=== PATIENT | female | born 1930 | race Caucasian/White ===

== ENCOUNTER 2016-04-04 19:07 | Inpatient (IN) | payer MEDICARE, BC ==
[2016-04-04] MEDS ORDERED: SODIUM CHLORIDE 0.9% 10 ML FLUSH FLUSH PRN (19:19)
[2016-04-04] MEDS ORDERED: NS 1,000 ML IV ONE (19:19)
[2016-04-04 19:42] LABS: ALLEN'S TEST PASS; BEb -7.4 (+/- 2); TCO2 19.2 MMOL/L (23-27)
[2016-04-04 19:43] LABS: ABG Draw Site Right Radial; ABG Draw Tech BKL
--- NOTE | 2016-04-04 19:45 | DIRPT ---
CLINICAL DATA: Chest pain, found unresponsive after falling while walking out of a bathroom. CPR performed. Hyperglycemia. Altered mental status. EXAM: PORTABLE CHEST 1 VIEW COMPARISON: 12/12/2014 FINDINGS: New moderate enlargement of the cardiopericardial silhouette with bilateral perihilar interstitial accentuation and slight prominence of the reji. Atherosclerotic aortic arch. Left axillary clips noted. Calcifications noted below the left glenohumeral joint. IMPRESSION: 1. New moderate enlargement of the cardiopericardial silhouette with perihilar interstitial accentuation favoring interstitial edema. 2. Low lung volumes. 3. No pneumothorax identified. Electronically Signed By: Shawn Foster M.D. On: 04/04/2016 19:42
--- NOTE | 2016-04-04 20:11 | EDPRACDOC ---
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 NO SXS. PT HAS SIG PROBLEMS WITH VALVES. NOT A CANDIDATE FOR DIALYSIS. ON COUMADIN. Presyncopal phase: Reports: None Postsyncopal phase: Reports: Rapid recovery Prehospital care: Reports: IV, Moniter Improves/Worsens with: improves with: Nothing Associated Signs/Symptoms: Reports: None <Crow Washington - Last Filed: 04/04/16 22:13> <Patel Mueller - Last Filed: 04/05/16 00:00> - General Information Chief Complaint: Fall Stated Complaint: UNRESPONSIVE Time Seen by Provider: 04/04/16 19:09 Home Medications: Home Medications Cholecalciferol [Vitamin D3 (cholecalciferol)] 1,000 units PO DAILY 03/12/12 Nitroglycerin [Nitrostat] 0.4 mg SL [id number] PRN 03/12/12 Aspirin (Enteric Coated) [Halfprin] 81 mg PO DAILY 01/31/14 Febuxostat [Uloric] 40 mg PO QAM 01/31/14 Insulin Glargine [Lantus Pen] 22 units SQ HS 01/31/14 Linagliptin [Tradjenta] 5 mg PO DAILY 01/31/14 Rosuvastatin Calcium [Crestor] 5 mg PO HS 01/31/14 Carvedilol [Coreg] 25 mg PO BID #60 tab 02/04/14 B Complex with Vitamin C [Super B Complex with C] 1 cap PO DAILY 12/09/14 Isosorbide Mononitrate [Imdur] 60 mg PO DAILY #30 tab 12/12/14 Amiodarone [Cordarone, Pacerone] 200 mg PO DAILY 04/04/16 Calcium Carbonate [Tums] 1 tab PO TID PRN 04/04/16 Folic Acid/Vitamin B Comp W-C [Renavit Tablet] 1 tab PO DAILY 04/04/16 HydrALAZINE (Cardiovascular) [Apresoline] 25 mg PO QID 04/04/16 Metolazone [Zaroxolyn] 2.5 mg PO TU 04/04/16 Sertraline HCl [Zoloft] 25 mg PO DAILY 04/04/16 Torsemide 20 mg PO DAILY 04/04/16 Warfarin Sodium [Coumadin] 1 mg PO Q72H 04/04/16 Warfarin Sodium [Coumadin] 2 mg PO Q72H 04/04/16 Warfarin Sodium [Coumadin] 2 mg PO Q72H 04/04/16 Allergies/Adverse Reactions: Allergies Allergy/AdvReac Type Severity Reaction Status Date / Time No Known Allergies Allergy Verified 12/09/14 10:44 - Treatment Prior to ED Arrival Reported Medications/Treatment HOUSING INSPECTORS Treated With Medication HOUSING INSPECTORS YES Medications HOUSING INSPECTORS (Medication/ 1mg of atropine via ems Dose/Time) EMS Treatment ALS IV Yes <Crow Washington - Last Filed: 04/04/16 22:13> - Treatment Prior to ED Arrival Reported Medications/Treatment HOUSING INSPECTORS Treated With Medication HOUSING INSPECTORS YES Medications HOUSING INSPECTORS (Medication/ 1mg of atropine via ems Dose/Time) EMS Treatment ALS IV Yes <Patel Mueller - Last Filed: 04/05/16 00:00> ED Past Medical History - History Reviewed Yes Nurses notes reviewed and agree except as marked - Patient Medical History Cardiac History: Reports: Atrial Fibrillation, Hypertension, Congestive Heart Failure (Diastolic dysfunction), Hypercholesterolemia, Syncope. Denies: Cardiac Catheterization, CABG Respiratory History: Denies: Pneumonia GI/ History: Reports: Renal Disease (Diabetic nephropathy), Renal Failure ( Chronic renal failure last creatinine on October 18, 2014 was 4.02 her hemogl). Denies: Kidney (Renal Surgery) Musculoskeletal History: Reports: Arthritis, Osteoarthritis Psychological History: Denies: Depression, Anxiety, Substance Use Disorder Systemic History: Reports: Cancer (breast, cervical), Anemia (2000 P HIP REPLACEMENT), Diabetes. Denies: Lupus Surgical History: Reports: Cholecystectomy, Hernia Surgery, Other (Rt hip surgery and mastectomy). Denies: CABG, Hysterectomy, Angioplasty, Cardiac Catheterization, Tonsillectomy/Adnoidectomy - Family Medical History Reports: Hypertension, Diabetes, Cancer, Stroke, Cardiac Disorders - Social Medical History Smoking Status: Never smoker Social History: Denies: Amphetamine Use, Substance Use Disorder <Crow Washington - Last Filed: 04/04/16 22:13> EDM Review of Systems - Review of Systems ROS Negative Except as Marked: Yes All systems reviewed and were negative except as marked <Crow Washington - Last Filed: 04/04/16 22:13> - Physical Exam Constitutional: Alert (Awake), No apparent distress Oriented to: Time, Person, Place Last recorded Vital Signs: Last Vital Signs Temp 97.2 F L 04/04/16 19:12 Pulse 60 04/04/16 19:27 Resp 21 04/04/16 19:27 BP 143/66 04/04/16 19:27 Pulse Ox 96 04/04/16 19:27 Oxygen Pulse Oxygen Saturation 96 O2 Device Room Air Oxygen Flow Rate Fraction of Inspired Oxygen ( FIO2) - HEENT Head: Normal ( normocephalic) Eye Exam: Normal (PERRL, EOMI, Sclera white) Oropharynx: Normal (Pharynx:Moist without exudate,Gums-no swelling) ENT EAC: Normal TMJ: Normal Nose: No Symptoms Reported (septum midline) Neck: Normal (FROM, trachea at midline) - Respiratory/Cardiovascular Respiratory: Normal - CTA (BBS clear to auscultation without adventitious sounds ) Cardiovascular: Normal (RRR without murmur, gallop or rub) - GI Auscultation: Normal (NABS) Palpation: Normal (Soft,No rebound or guarding, non distended) Tenderness: Non tender Euceda's Sign: Negative - Musculoskeletal Back: Normal (Non-Tender) Extremities: Normal (Normal tone, Pulses 2+ No cyanosis or edema, FROM) - Integumentary Skin: Normal, Warm, Dry Lymphatics: Normal (no adenopathy) - Neurologic Memory Impaired: Normal Motor Function: Normal (Normal tone, Pulses 2+ No cyanosis or edema, FROM) Cranial Nerve: Normal (CN II-X11 intact sensation, strength 5/5) Cerebellar: Normal Mood Description: Normal Perception: Normal <Crow Washington - Last Filed: 04/04/16 22:13> - Physical Exam Last recorded Vital Signs: Last Vital Signs Temp 97.7 F 04/04/16 23:20 Pulse 59 L 04/04/16 23:20 Resp 18 04/04/16 23:20 BP 167/68 04/04/16 23:20 Pulse Ox 94 04/04/16 23:20 Oxygen Pulse Oxygen Saturation 91 O2 Device Room Air Oxygen Flow Rate Fraction of Inspired Oxygen ( FIO2) <Patel Mueller - Last Filed: 04/05/16 00:00> - Results 04/04/16 21:20 04/04/16 21:20 Puncture Site Right radial 04/04/16 19:38 pH 7.310 pH UNITS (7.35-7.45) L 04/04/16 19:38 pCO2 36.0 mmHg (35-45) 04/04/16 19:38 pO2 87.0 mmHg (80-100) 04/04/16 19:38 HCO3 18.1 MMOL/L (22-26) L 04/04/16 19:38 Total CO2 19.2 MMOL/L (23-27) L 04/04/16 19:38 Base Excess -7.4 (+/- 2) L 04/04/16 19:38 FiO2 % Ra 04/04/16 19:38 Specimen Drawn By Bkl 04/04/16 19:38 Lab Results 04/04/16 19:38 Puncture Site Right radial pH 7.310 L pCO2 36.0 pO2 87.0 HCO3 18.1 L Total CO2 19.2 L Base Excess -7.4 L FiO2 % Ra Specimen Drawn By Bkl - EKG EKG #1 [place]: Normal Rhythm: NSR Block: 1, AVB Hypertrophy: None ST: Normal <Crow Washington - Last Filed: 04/04/16 22:13> - Results 04/04/16 21:20 04/04/16 21:20 WBC 8.8 xk/uL (3.8-10.8) 04/04/16 21:20 RBC 3.70 xM/uL (4.20-5.40) L 04/04/16 21:20 Hgb 11.2 g/dL (12.0-16.0) L 04/04/16 21:20 Hct 34.2 % (36-47) L 04/04/16 21:20 MCV 93 fL (81-99) 04/04/16 21:20 MCH 30.4 pg (27-32) 04/04/16 21:20 MCHC 32.9 g/dl (33-36) L 04/04/16 21:20 RDW 18.0 % (11.5-14.5) H 04/04/16 21:20 Plt Count 111 xk/uL (130-400) L 04/04/16 21:20 MPV 9.6 fL (7.4-10.4) 04/04/16 21:20 Neut % (Auto) Cancelled 04/04/16 21:20 Lymph % (Auto) Cancelled 04/04/16 21:20 [place] % (Auto) Cancelled 04/04/16 21:20 Eos % (Auto) Cancelled 04/04/16 21:20 Baso % (Auto) Cancelled 04/04/16 21:20 Absolute Neuts (auto) Cancelled 04/04/16 21:20 Absolute Lymphs (auto) Cancelled 04/04/16 21:20 Seg Neuts % (Manual) 88 % (45-76) H 04/04/16 21:20 Band Neutrophils % 0 % (0-5) 04/04/16 21:20 Lymphocytes % (Manual) 9 % (17-44) L 04/04/16 21:20 Monocytes % (Manual) 3 % (0-10) 04/04/16 21:20 Absolute Neutrophils 7.74 xk/uL (1.7-8.2) 04/04/16 21:20 Absolute Lymphocytes 0.79 xk/uL (0.65-4.75) 04/04/16 21:20 Platelet Estimate Dec (NORMAL) 04/04/16 21:20 RBC Morphology 1+ aniso 04/04/16 21:20 PT 23.6 SEC (9.2-11.2) H 04/04/16 21:00 INR 2.3 04/04/16 21:00 APTT 29.9 SEC (22-35) 04/04/16 21:00 Puncture Site Right radial 04/04/16 19:38 pH 7.310 pH UNITS (7.35-7.45) L 04/04/16 19:38 pCO2 36.0 mmHg (35-45) 04/04/16 19:38 pO2 87.0 mmHg (80-100) 04/04/16 19:38 HCO3 18.1 MMOL/L (22-26) L 04/04/16 19:38 Total CO2 19.2 MMOL/L (23-27) L 04/04/16 19:38 Base Excess -7.4 (+/- 2) L 04/04/16 19:38 FiO2 % Ra 04/04/16 19:38 Specimen Drawn By Bkl 04/04/16 19:38 Sodium 143 mEq/L (137-146) 04/04/16 21:20 Potassium 4.2 mEq/L (3.5-5.1) 04/04/16 21:20 Chloride 108 mEq/L (98-107) H 04/04/16 21:20 Carbon Dioxide 21 mMOL/L (22-33) L 04/04/16 21:20 Anion Gap 18 mEq/L (8-16) H 04/04/16 21:20 BUN 95 MG/DL (7-17) H 04/04/16 21:20 Creatinine 4.70 MG/DL (0.52-1.04) H 04/04/16 21:20 Estimated GFR (MDRD) 9 mL/min (>=60) L 04/04/16 21:20 Glucose 155 MG/DL (70-99) H 04/04/16 21:20 Calculated Osmolality 307 MOs/Kg (270-290) H 04/04/16 21:20 Calcium 8.4 MG/DL (8.4-10.2) 04/04/16 21:20 Corrected Calcium 8.8 MG/DL (8.4-10.2) 04/04/16 21:20 Total Bilirubin 0.5 MG/DL (0.2-1.3) 04/04/16 21:20 AST 51 IU/L (14-36) H 04/04/16 21:20 ALT 48 IU/L (9-52) 04/04/16 21:20 Alkaline Phosphatase 52 IU/L (55-165) L 04/04/16 21:20 Troponin I 0.05 ng/mL (<.04) 04/04/16 21:20 Total Protein 6.0 G/DL (6.3-8.2) L 04/04/16 21:20 Albumin 3.6 G/DL (3.5-5.0) 04/04/16 21:20 Urine Color Yellow 04/04/16 22:05 Urine Clarity Hazy 04/04/16 22:05 Urine pH 5.0 (5.0-8.0) 04/04/16 22:05 Ur Specific [place] 1.010 04/04/16 22:05 Urine Protein 1+ (NEG/TRACE) H 04/04/16 22:05 Urine Glucose (UA) Neg (NEGATIVE) 04/04/16 22:05 Urine Ketones Neg (NEGATIVE) 04/04/16 22:05 Urine Occult Blood 1+ (NEG/TRACE) H 04/04/16 22:05 Urine Nitrite Neg (NEGATIVE) 04/04/16 22:05 Urine Bilirubin Neg (NEGATIVE) 04/04/16 22:05 Urine Urobilinogen 0.2 MG/DL (0-1) 04/04/16 22:05 Ur Leukocyte Esterase Neg (NEGATIVE) 04/04/16 22:05 Urine RBC 2-5 (0-5) 04/04/16 22:05 Urine WBC 2-5 (0-5) 04/04/16 22:05 Ur Epithelial Cells Occ 04/04/16 22:05 Urine Bacteria Few (NEG/FEW) 04/04/16 22:05 Urine Mucus Occ (NEG/OCC) 04/04/16 22:05 Lab Results 04/04/16 04/04/16 04/04/16 22:05 21:20 21:20 WBC 8.8 RBC 3.70 L Hgb 11.2 L Hct 34.2 L MCV 93 MCH 30.4 MCHC 32.9 L RDW 18.0 H Plt Count 111 L MPV 9.6 Neut % (Auto) Cancelled Lymph % (Auto) Cancelled [place] % (Auto) Cancelled Eos % (Auto) Cancelled Baso % (Auto) Cancelled Absolute Neuts (auto) Cancelled Absolute Lymphs (auto) Cancelled Seg Neuts % (Manual) 88 H Band Neutrophils % 0 Lymphocytes % (Manual) 9 L Monocytes % (Manual) 3 Absolute Neutrophils 7.74 Absolute Lymphocytes 0.79 Platelet Estimate Dec RBC Morphology 1+ aniso PT INR APTT Puncture Site pH pCO2 pO2 HCO3 Total CO2 Base Excess FiO2 % Specimen Drawn By Sodium 143 Potassium 4.2 Chloride 108 H Carbon Dioxide 21 L Anion Gap 18 H BUN 95 H Creatinine 4.70 H Estimated GFR (MDRD) 9 L Glucose 155 H Calculated Osmolality 307 H Calcium 8.4 Corrected Calcium 8.8 Total Bilirubin 0.5 AST 51 H ALT 48 Alkaline Phosphatase 52 L Troponin I 0.05 Total Protein 6.0 L Albumin 3.6 Urine Color Yellow Urine Clarity Hazy Urine pH 5.0 Ur Specific [place]ena 1.010 Urine Protein 1+ H Urine Glucose (UA) Neg Urine Ketones Neg Urine Occult Blood 1+ H Urine Nitrite Neg Urine Bilirubin Neg Urine Urobilinogen 0.2 Ur Leukocyte Esterase Neg Urine RBC 2-5 Urine WBC 2-5 Ur Epithelial Cells Occ Urine Bacteria Few Urine Mucus Occ 04/04/16 04/04/16 21:00 19:38 WBC RBC Hgb Hct MCV MCH MCHC RDW Plt Count MPV Neut % (Auto) Lymph % (Auto) [place] % (Auto) Eos % (Auto) Baso % (Auto) Absolute Neuts (auto) Absolute Lymphs (auto) Seg Neuts % (Manual) Band Neutrophils % Lymphocytes % (Manual) Monocytes % (Manual) Absolute Neutrophils Absolute Lymphocytes Platelet Estimate RBC Morphology PT 23.6 H INR 2.3 APTT 29.9 Puncture Site Right radial pH 7.310 L pCO2 36.0 pO2 87.0 HCO3 18.1 L Total CO2 19.2 L Base Excess -7.4 L FiO2 % Ra Specimen Drawn By Bkl Sodium Potassium Chloride Carbon Dioxide Anion Gap BUN Creatinine Estimated GFR (MDRD) Glucose Calculated Osmolality Calcium Corrected Calcium Total Bilirubin AST ALT Alkaline Phosphatase Troponin I Total Protein Albumin Urine Color Urine Clarity Urine pH Ur Specific [place] Urine Protein Urine Glucose (UA) Urine Ketones Urine Occult Blood Urine Nitrite Urine Bilirubin Urine Urobilinogen Ur Leukocyte Esterase Urine RBC Urine WBC Ur Epithelial Cells Urine Bacteria Urine Mucus - Additional Information PATIENT REQUEST TO BE A DNI- DO NOT INTUBATE <Patel Mueller - Last Filed: 04/05/16 00:00> ED Critical Care Note - Critical Care Note Total Time (mins): 35 <Crow Washington - Last Filed: 04/04/16 22:13> - Departure Yes I personally saw and evaluated the patient. Disposition: Admit IP To This Hospital Decision to Admit Time: 22:06 (HYUN) Decision to admit date: 04/04/16 Decision to admit: from ED <Crow Washington - Last Filed: 04/04/16 22:13> <Patel Mueller - Last Filed: 04/05/16 00:00> - Departure Condition: Good Final Diagnosis: SYNCOPE, CRF, CHF
--- NOTE | 2016-04-04 21:08 | DIRPT ---
CLINICAL DATA: 86-year-old female with history of syncope and fall while coming out of the bathroom. History of left-sided breast cancer status post left mastectomy. EXAM: CT HEAD WITHOUT CONTRAST CT CERVICAL SPINE WITHOUT CONTRAST TECHNIQUE: Multidetector CT imaging of the head and cervical spine was performed following the standard protocol without intravenous contrast. Multiplanar CT image reconstructions of the cervical spine were also generated. COMPARISON: Head CT 03/12/2012. FINDINGS: CT HEAD FINDINGS Mild cerebral atrophy. Patchy and confluent areas of decreased attenuation are noted throughout the deep and periventricular white matter of the cerebral hemispheres bilaterally, compatible with chronic microvascular ischemic disease. No acute displaced skull fractures are identified. No acute intracranial abnormality. Specifically, no evidence of acute post-traumatic intracranial hemorrhage, no definite regions of acute/subacute cerebral ischemia, no focal mass, mass effect, hydrocephalus or abnormal intra or extra-axial fluid collections. The visualized paranasal sinuses and mastoids are well pneumatized, with exception of some minimal mucosal thickening in the maxillary sinuses bilaterally. CT CERVICAL SPINE FINDINGS No acute displaced fractures of the cervical spine. Alignment is anatomic. Prevertebral soft tissues are normal. Multilevel degenerative disc disease, most evident at C5-C6 and C6-C7. Multilevel facet arthropathy. Visualized portions of the upper thorax are remarkable for areas of ground-glass attenuation and septal thickening throughout the lung apices, suggesting pulmonary edema. IMPRESSION: 1. No evidence of significant acute traumatic injury to the skull, brain or cervical spine. 2. Mild cerebral atrophy with chronic microvascular ischemic changes in the cerebral white matter. 3. Multilevel degenerative disc disease and cervical spondylosis, as above. 4. The appearance of the lung apices suggests pulmonary edema, likely from congestive heart failure given the appearance on recent chest x-ray. Electronically Signed By: Yash Davila M.D. On: 04/04/2016 21:06
[2016-04-04 21:31] LABS: MPV 9.6 fL (7.4-10.4)
[2016-04-04 21:41] LABS: BLOOD UREA NITROGEN 95 MG/DL (7-17); CALC CORRECTED 8.8 MG/DL (8.4-10.2); CALCIUM 8.4 MG/DL (8.4-10.2); CALCULATED OSMOLALITY 307 MOs/Kg (270-290); CHLORIDE 108 mEq/L (98-107); GLUCOSE 155 MG/DL (70-99); SODIUM LEVEL 143 mEq/L (137-146)
[2016-04-04 21:44] LABS: PARTIAL THROMB. TIME 29.9 SEC (22-35); PT-INR 2.3
[2016-04-04 22:13] LABS: LEUKOCYTES/URINE NEG (NEGATIVE); NITRITE/URINE NEG (NEGATIVE); URINE OCCULT BLOOD 1+ (NEG/TRACE)
--- NOTE | 2016-04-04 22:25 | HISTPHYS ---
- Chief Complaint syncope - History of Present Illness PRIMARY CARE PROVIDER: Dr. Davidson JAVA ANALYST: Dr. Peter REFINERY OPERATOR: Dr. Bettencourt in [place] HPI: The patient is an 86 yo woman with multiple medical problems including chronic kidney disease stage 5, valvular heart disease, who presents with syncope. The patient had just gotten home from seeing Dr. Bettencourt, her principal scientist, when she said she felt wobbly. The patient does not remember all the events, so much of the history is obtained from the patient's daughter, who witnessed the events. She uses a cane at baseline, and she went toward the bathroom, when she passed out and lost consciousness. Family caught patient before she hit her head. She lost bladder control. She had some twitching of her arm (right) but no seizure-like shaking. No dragging of a leg. She was unconscious for at least 10 minutes. Family did not feel a pulse and per cut lace machine operator recommendations started chest compressions at home. EMS arrived and she was still unconscious. EMS said her blood pressure and heart rate were low. She awakened in the emergency department and said she could hear what people where saying to her but she could not respond. No slurred speech. Onset: today. Duration: intermittent. Location: generalized. Character: complete loss of consciousness. Alleviated by: Nothing. Exacerbated by: Nothing. Associated Symptoms: She felt "wobbly." Otherwise no symptoms. Treatments: none at home except usual medications. Is not a candidate for dialysis due to her heart. Is not a candidate for heart surgery due to her kidneys. - Medical History Cardiac History: Reports: Atrial Fibrillation, Hypertension, Congestive Heart Failure (Diastolic. ECHO 2013: EF 60%. Mod-severe MR. small PFO but neg bubble.) , Hypercholesterolemia, Valvular Heart Disease, Syncope (and valvular heart disease), Other GI/ History: Reports: Renal Disease (Diabetic nephropathy), Renal Failure ( Chronic renal failure. CKD stage 4-5. Cr usually 4.) Musculoskeletal History: Reports: Arthritis, Osteoarthritis Systemic History: Reports: Cancer (breast, cervical), Anemia, Diabetes (Type 2.) Is not a candidate for dialysis due to her heart. Is not a candidate for heart surgery due to her kidneys. ECHOCARDIOGRAM 02/01/2014: EF 60% Left ventricular size, wall thickness, and systolic function are normal. No segmental abnormality. Marked left atrial dilatation. Right ventricle is normal in size and function. SMALL PATENT FORAMEN OVALE SUGGESTED BY DOPPLER COLOR FLOW. Negative bubble study for potential right to left shunt. Mild aortic stenosis with peak/mean pressure gradient of 23/14 mmHg, the aortic valve area by continuity equation is 1.7 cm2. Severe, diffuse and nodular mitral annular calcification present. Moderate to severe 3+ mitral regurgitation. Mild tricuspid regurgitation. Right ventricular systolic pressure, as measured by Doppler, is 60 mmHg. Inferior vena cava with no significant inspiratory collapse, which is consistent with a right atrial pressure of > 20 mmHg. - Surgical History Reports: Cholecystectomy, Hernia Surgery (and hip replacement 1999), Other (Rt hip surgery yrs ago and Right mastectomy 15 yrs ago.) OTHER: Thyroid fine needle aspiration 05/31/14: Pathology: consistent with non-neoplastic goiter. - Medictions/Allergies Allergies No Known Allergies Allergy (Verified 12/09/14 10:44) Current Medication List: Reviewed Home Medications Cholecalciferol [Vitamin D3 (cholecalciferol)] 1,000 units PO DAILY 03/12/12 Nitroglycerin [Nitrostat] 0.4 mg SL [id number] PRN 03/12/12 Aspirin (Enteric Coated) [Halfprin] 81 mg PO DAILY 01/31/14 Febuxostat [Uloric] 40 mg PO QAM 01/31/14 Insulin Glargine [Lantus Pen] 22 units SQ HS 01/31/14 Linagliptin [Tradjenta] 5 mg PO DAILY 01/31/14 Rosuvastatin Calcium [Crestor] 5 mg PO HS 01/31/14 Carvedilol [Coreg] 25 mg PO BID #60 tab 02/04/14 B Complex with Vitamin C [Super B Complex with C] 1 cap PO DAILY 12/09/14 Isosorbide Mononitrate [Imdur] 60 mg PO DAILY #30 tab 12/12/14 Amiodarone [Cordarone, Pacerone] 200 mg PO DAILY 04/04/16 Calcium Carbonate [Tums] 1 tab PO TID PRN 04/04/16 Folic Acid/Vitamin B Comp W-C [Renavit Tablet] 1 tab PO DAILY 04/04/16 HydrALAZINE (Cardiovascular) [Apresoline] 25 mg PO QID 04/04/16 Metolazone [Zaroxolyn] 2.5 mg PO TU 04/04/16 Sertraline HCl [Zoloft] 25 mg PO DAILY 04/04/16 Torsemide 20 mg PO DAILY 04/04/16 Warfarin Sodium [Coumadin] 1 mg PO Q72H 04/04/16 Warfarin Sodium [Coumadin] 2 mg PO Q72H 04/04/16 Warfarin Sodium [Coumadin] 2 mg PO Q72H 04/04/16 - Family History Reports: Diabetes (Mother), Cardiac Disorders (Siblings: abnormal heart valves, and MIs.) - Social History Lives: With Family Smoking Status: Never smoker Social History: Denies: Alcohol Use, Substance Use Disorder - Review of Systems GENERAL: No Fever, chills, or diaphoresis. Positive for fatigue/malaise. HEENT: No ear pain or discharge. No nasal discharge or bleeding. No throat pain or swelling. No eye pain or eye redness. RESPIRATORY: No cough, wheezing, or shortness of breath. CARDIOVASCULAR: No chest pain or palpitations. GI: No abdominal pain, nausea, vomiting, diarrhea, constipation, or bloody stool. NEUROLOGICAL: No headache or focal weakness. Had unsteady gait. INTEGUMENT: no rashes, itching, or lesions. LYMPHATIC SYSTEM: no lymph node swelling or pain. MUSCULOSKELETAL: no pain or joint swelling. GENITOURINARY: No dysuria or hematuria. ENDOCRINE: No polyuria or polydipsia. HEME: No chronic anemia, bleeding, or easy bruising. - Physical Exam Vital Signs: Initial Vitals Temperature 97.2 F L 04/04/16 19:12 Pulse Rate 61 04/04/16 19:12 Respiratory Rate 22 04/04/16 19:12 Blood Pressure 161/67 04/04/16 19:12 Pulse Oxygen Saturation 97 04/04/16 19:12 Weight: 81.7 kg Height: 5'4" BMI: 30.9 - Other Exam Other Exam Findings: GENERAL: Ill-appearing, well nourished, no acute distress. HEENT: Normocephalic, atraumatic; pupils equal and round. Nares patent, without discharge or bleeding. No oropharyngeal lesions or erythema. Mucous membranes are dry. NECK: is supple, no masses, trachea midline. RESPIRATORY: Clear to auscultation bilaterally. Chest wall movements are symmetric. No use of accessory muscles to breathe. No wheezing, rhonchi. Minimal rales in upper lungs bilaterally. CARDIOVASCULAR: Normal S1, S2. Murmur 3/6 systolic. No rubs, or gallops. PMI non -displaced. Carotids: no carotid bruits. Mild bradycardia. DP pulses 2+ bilaterally. GI: soft, nontender, non-distended, normal active bowel sounds. No hepatosplenomegaly. INTEGUMENT: Clean, dry, and intact. No rashes. MUSCULOSKELETAL: Moving all extremities. No cyanosis. No clubbing. Edema: trace lower extremity edema bilaterally. NEUROLOGICAL: Cranial nerves 2-12 grossly intact. Motor 4/5 throughout. Reflexes : 2+ bilaterally. Babinski: toes downgoing bilaterally. Intact Finger to nose. Sensory grossly intact to light touch. Intact rapid alternating movements bilaterally. No pronator drift. PSYCHIATRIC: Fully oriented. Normal and appropriate affect. LYMPHATIC: No cervical lymphadenopathy. No supraclavicular lymphadenopathy. - Lab Results Laboratory Tests 04/04/16 04/04/16 04/04/16 19:38 21:00 21:20 WBC RBC Hgb Hct MCV MCH MCHC RDW Plt Count MPV Neut % (Auto) Lymph % (Auto) [place] % (Auto) Eos % (Auto) Baso % (Auto) Absolute Neuts (auto) Absolute Lymphs (auto) Seg Neuts % (Manual) Band Neutrophils % Lymphocytes % (Manual) Monocytes % (Manual) Absolute Neutrophils Absolute Lymphocytes Platelet Estimate RBC Morphology PT 23.6 H INR 2.3 APTT 29.9 Puncture Site Right radial pH 7.310 L pCO2 36.0 pO2 87.0 HCO3 18.1 L Total CO2 19.2 L Base Excess -7.4 L FiO2 % Ra Specimen Drawn By Bkl Sodium 143 Potassium 4.2 Chloride 108 H Carbon Dioxide 21 L Anion Gap 18 H BUN 95 H Creatinine 4.70 H Estimated GFR (MDRD) 9 L Glucose 155 H POC Capillary Glucose Hemoglobin A1c Calculated Osmolality 307 H Calcium 8.4 Corrected Calcium 8.8 Total Bilirubin 0.5 AST 51 H ALT 48 Alkaline Phosphatase 52 L Troponin I 0.05 Total Protein 6.0 L Albumin 3.6 TSH Urine Color Urine Clarity Urine pH Ur Specific [place] Urine Protein Urine Glucose (UA) Urine Ketones Urine Occult Blood Urine Nitrite Urine Bilirubin Urine Urobilinogen Ur Leukocyte Esterase Urine RBC Urine WBC Ur Epithelial Cells Urine Bacteria Urine Mucus Stool Occult Blood 04/04/16 04/04/16 21:20 22:05 WBC 8.8 RBC 3.70 L Hgb 11.2 L Hct 34.2 L MCV 93 MCH 30.4 MCHC 32.9 L RDW 18.0 H Plt Count 111 L MPV 9.6 Neut % (Auto) Cancelled Lymph % (Auto) Cancelled [place] % (Auto) Cancelled Eos % (Auto) Cancelled Baso % (Auto) Cancelled Absolute Neuts (auto) Cancelled Absolute Lymphs (auto) Cancelled Seg Neuts % (Manual) 88 H Band Neutrophils % 0 Lymphocytes % (Manual) 9 L Monocytes % (Manual) 3 Absolute Neutrophils 7.74 Absolute Lymphocytes 0.79 Platelet Estimate Dec RBC Morphology 1+ aniso PT INR APTT Puncture Site pH pCO2 pO2 HCO3 Total CO2 Base Excess FiO2 % Specimen Drawn By Sodium Potassium Chloride Carbon Dioxide Anion Gap BUN Creatinine Estimated GFR (MDRD) Glucose POC Capillary Glucose Hemoglobin A1c Calculated Osmolality Calcium Corrected Calcium Total Bilirubin AST ALT Alkaline Phosphatase Troponin I Total Protein Albumin TSH Urine Color Yellow Urine Clarity Hazy Urine pH 5.0 Ur Specific [place] 1.010 Urine Protein 1+ H Urine Glucose (UA) Neg Urine Ketones Neg Urine Occult Blood 1+ H Urine Nitrite Neg Urine Bilirubin Neg Urine Urobilinogen 0.2 Ur Leukocyte Esterase Neg Urine RBC 2-5 Urine WBC 2-5 Ur Epithelial Cells Occ Urine Bacteria Few Urine Mucus Occ Stool Occult Blood - Diagnostic Findings EK bpm. Sinus rhythm with first degree AV block. Left axis deviation. Left ventricular hypertrophy with ARS widening and repolarization abnormality. Cannot rule out septal infarct, age undetermined. Slight ST depression in V5, V6 , but similar to previous EKG. J point elevation in V3. Reviewed EKG personally. EXAM: CT HEAD WITHOUT CONTRAST AND CT CERVICAL SPINE WITHOUT CONTRAST TECHNIQUE: Multidetector CT imaging of the head and cervical spine was performed following the standard protocol without intravenous contrast. Multiplanar CT image reconstructions of the cervical spine were also generated. COMPARISON: Head CT 03/12/2012. FINDINGS: CT HEAD FINDINGS Mild cerebral atrophy. Patchy and confluent areas of decreased attenuation are noted throughout the deep and periventricular white matter of the cerebral hemispheres bilaterally, compatible with chronic microvascular ischemic disease. No acute displaced skull fractures are identified. No acute intracranial abnormality. Specifically, no evidence of acute post-traumatic intracranial hemorrhage, no definite regions of acute/subacute cerebral ischemia, no focal mass, mass effect, hydrocephalus or abnormal intra or extra-axial fluid collections. The visualized paranasal sinuses and mastoids are well pneumatized, with exception of some minimal mucosal thickening in the maxillary sinuses bilaterally. CT CERVICAL SPINE FINDINGS No acute displaced fractures of the cervical spine. Alignment is anatomic. Prevertebral soft tissues are normal. Multilevel degenerative disc disease, most evident at C5-C6 and C6-C7. Multilevel facet arthropathy. Visualized portions of the upper thorax are remarkable for areas of ground-glass attenuation and septal thickening throughout the lung apices, suggesting pulmonary edema. IMPRESSION: 1. No evidence of significant acute traumatic injury to the skull, brain or cervical spine. 2. Mild cerebral atrophy with chronic microvascular ischemic changes in the cerebral white matter. 3. Multilevel degenerative disc disease and cervical spondylosis, as above. 4. The appearance of the lung apices suggests pulmonary edema, likely from congestive heart failure given the appearance on recent chest x-ray. EXAM: PORTABLE CHEST 1 VIEW COMPARISON: 12/12/2014 FINDINGS: New moderate enlargement of the cardiopericardial silhouette with bilateral perihilar interstitial accentuation and slight prominence of the reji. Atherosclerotic aortic arch. Left axillary clips noted. Calcifications noted below the left glenohumeral joint. IMPRESSION: 1. New moderate enlargement of the cardiopericardial silhouette with perihilar interstitial accentuation favoring interstitial edema. 2. Low lung volumes. 3. No pneumothorax identified. - Assessment (1) Syncope R55 - SYNCOPE AND COLLAPSE Acute Present on Admission: Yes Qualifiers: Syncope type: S Encounter type: E Concerning for possible arrhythmia. Known severe mitral valve regurgitation. Plan: Telemetry. Monitor neuro exam. (2) Bradycardia R00.1 - BRADYCARDIA, UNSPECIFIED Acute Present on Admission: Yes Mild. Plan: Telemetry. Evaluate further if heart rate is less than 50. (3) Acute pulmonary edema J81.0 - ACUTE PULMONARY EDEMA Acute Present on Admission: Yes Mild acute component. Patient has no symptoms. Plan: Reluctant to increase Lasix, because patient's BUN/Cr is already quite high, at 95/4.7. If patient become symptomatic, consider further Lasix. (4) Chronic kidney disease, stage V N18.5 - CHRONIC KIDNEY DISEASE, STAGE 5 Acute Present on Admission: Yes Baseline Cr is 4 - 4.8. Not a candidate for dialysis per patient. Plan: BUN severely elevated. Continue follow up with principal scientist. Renal diet. 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 Plan: Will start with warfarin 2 mg daily. Adjust dosing once home dose is known. INR daily. (6) Type 2 diabetes mellitus with diabetic nephropathy E11.21 - TYPE 2 DIABETES MELLITUS WITH DIABETIC NEPHROPATHY Acute Present on Admission: Yes Qualifiers: Diabetes mellitus adjunct faculty for medical terminology insulin use: D Plan: Hold oral diabetes medications. Check fingerstick blood sugars q ac and hs. Sliding scale insulin. Ordered A1c and urine microalbumin. Case Care Discussed with: Patient, Family, Nursing Staff
[2016-04-04 22:26] LABS: SEG NEUTROPHIL 88 % (45-76); TOTAL CELL COUNT 100
[2016-04-04] MEDS ORDERED: CHAPSTICK LIP BALM ONE (23:41)
[2016-04-05] MEDS ORDERED: NITROGLYCERINE 0.4 MG TAB SL PRN (00:24)
[2016-04-05] MEDS ORDERED: CALCIUM CARBONATE 500 MG TAB PO PRN (00:24)
[2016-04-05] MEDS ORDERED: Docusate Sodium 100 MG CAP PO PRN (00:29)
[2016-04-05] MEDS ORDERED: SIMETHICONE 80 MG TAB PO PRN (00:29)
[2016-04-05] MEDS ORDERED: ACETAMINOPHEN 325 MG/TAB TABLET PO PRN (00:29)
[2016-04-05] MEDS ORDERED: BISACODYL 5 MG TAB PO PRN (00:29)
[2016-04-05] MEDS ORDERED: GUAIFEN 100 MG-DEXTROMETH 10 MG PER 5 ML PO PRN (00:29)
[2016-04-05] MEDS ORDERED: SENNA CONCENTRATE TAB PO PRN (00:29)
[2016-04-05] MEDS ORDERED: ACETAMINOPHEN 325 MG SUPP PR PRN (00:29)
[2016-04-05] MEDS ORDERED: PROMETHAZINE 25 MG/ML VIAL IV PRN (00:29)
[2016-04-05] MEDS ORDERED: BENZONATATE 100 MG PERLES PO PRN (00:29)
[2016-04-05] MEDS ORDERED: GLUCAGON 1 MG VIAL SQ PRN (00:29)
[2016-04-05] MEDS ORDERED: GLUCOSE (ORAL GEL) 15 GM TUBE PO PRN (00:29)
[2016-04-05] MEDS ORDERED: ONDANSETRON HCL 4 MG/2 ML VIAL IV PRN (00:29)
[2016-04-05] MEDS ORDERED: TEMAZEPAM 15 MG CAP PO PRN (00:29)
[2016-04-05] MEDS ORDERED: DEXTROSE 25 GM/50 ML PFS IV PRN (00:29)
[2016-04-05] MEDS ORDERED: Non-Formulary Medication ITEM (Rosuvastatin Calcium [Crestor] 5 MG) PO SCH (00:30)
[2016-04-05] MEDS ORDERED: WARFARIN EDUCATION DOCUMENTATION ONE (01:00)
[2016-04-05] MEDS ORDERED: GLARGINE INSULIN (LANTUS) 100 UNITS/ML PEN SQ SCH (01:00)
[2016-04-05] MEDS ORDERED: Vaccine Screening Complete SCH (01:00)
[2016-04-05] MEDS: CARVEDILOL 25 MG TABLET PO SCH ×2 (01:08→08:43)
[2016-04-05] MEDS: GLARGINE INSULIN (LANTUS) 100 UNITS/ML PEN SQ SCH ×2 (01:24→22:26)
[2016-04-05 04:24] LABS: BLOOD UREA NITROGEN 96 MG/DL (7-17); CALC CORRECTED 9.5 MG/DL (8.4-10.2); CALCIUM 8.7 MG/DL (8.4-10.2); CALCULATED OSMOLALITY 312 MOs/Kg (270-290); CHLORIDE 109 mEq/L (98-107); GLUCOSE 150 MG/DL (70-99); SODIUM LEVEL 145 mEq/L (137-146); TOTAL PROTEIN 5.7 G/DL (6.3-8.2)
[2016-04-05] MEDS: ISOSORBIDE MONONITRATE 60 MG TAB PO SCH (05:56)
[2016-04-05] MEDS: REGULAR INSULIN 100 UNITS/ML - 3 ML VIAL SQ SCH ×4 (05:58→22:26)
[2016-04-05] MEDS: FEBUXOSTAT 40 MG TABLET PO SCH (08:45)
[2016-04-05] MEDS: TORSEMIDE 20 MG TAB PO SCH (08:45)
[2016-04-05] MEDS: CHOLECALCIFEROL 1000 UNITS TAB PO SCH (08:46)
[2016-04-05] MEDS: ROSUVASTATIN 10 MG TAB PO SCH (08:46)
[2016-04-05] MEDS: VIT B-C COMPLEX (NEPHROVITE) TAB PO SCH (08:46)
[2016-04-05] MEDS: SERTRALINE HCL 25 MG TAB PO SCH (08:46)
[2016-04-05] MEDS: hydrALAZINE 25 MG TAB PO SCH ×4 (08:50→20:22)
[2016-04-05] MEDS ORDERED: WARFARIN 2 MG TAB PO SCH (09:00)
[2016-04-05] MEDS ORDERED: B COMPLEX WITH VITAMIN C PO SCH (09:00)
[2016-04-05] MEDS ORDERED: AMIODARONE 200 MG TAB PO SCH (09:00)
--- NOTE | 2016-04-05 09:03 | PCM.CARDCO ---
Consultation Date: 04/05/16 Requesting Physician: Pascual Perla Rock Singer: Rony Ku Consult Reason: Syncope - History of Present Illness She is an 86-year-old woman with severe CKD stage 5 along with heart disease including hypertensive diastolic heart failure and valvular heart disease with mild aortic stenosis and moderate mitral regurgitation on echocardiogram in 2013. Her diagnoses include atrial fibrillation and she is on amiodarone as well as a beta-natalia previously had been described as chronic but is obvious paroxysmal form. She had trying day yesterday with doctor's visit returned home she was feeling weak during the day and at home she had an abrupt syncopal episode in the bathroom. She is described as having been incontinent at the time but no seizure activity was down for a prolonged period of time estimated 10 minutes and at 1 point when the family was talking to emergency medical services she was pulseless and receive CPR. There is a notation in the notes that when the EMS arrived she was bradycardic and hypotensive and she received atropine. I spoke to the ED staff was present when she arrived yesterday they were told her heart rate was down to 37 beats per minute and I am requesting strips did see what the rhythm was. For the time being I am going to hold any rate suppressant medications, Dr. 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 We could arrange for long-term ambulatory monitor at home for 30 days. Today she has some chest pain and chest wall tenderness room where she received CPR she had no angina yesterday she is not short of breath and she has had no other episodes like this. Chief Complaint: syncope - Past Medical and Surgical History Cardiac History: Reports: Atrial Fibrillation, Hypertension, Congestive Heart Failure (Diastolic. ECHO 2013: EF 60%. Mod-severe MR. small PFO but neg bubble.) , Hypercholesterolemia, Valvular Heart Disease, Syncope (and valvular heart disease), Other. Denies: Cardiac Catheterization, CABG Respiratory History: Denies: Pneumonia GI/ History: Reports: Renal Disease (Diabetic nephropathy), Renal Failure ( Chronic renal failure. CKD stage 4-5. Cr usually 4.). Denies: Kidney (Renal Surgery) Systemic History: Reports: Cancer (breast, cervical), Anemia, Diabetes (Type 2.) . Denies: Lupus Musculoskeletal History: Reports: Arthritis, Osteoarthritis Psychological History: Reports: Anxiety. Denies: Depression, Alcoholism, Substance Use Disorder Past Surgical History: Reports: Cholecystectomy, Hernia Surgery (and hip replacement 1999), Other (Rt hip surgery yrs ago and Right mastectomy 15 yrs ago.). Denies: CABG, Hysterectomy, Angioplasty, Cardiac Catheterization, Tonsillectomy/Adnoidectomy Allergies No Known Allergies Allergy (Verified 12/09/14 10:44) Home Medications Cholecalciferol [Vitamin D3 (cholecalciferol)] 1,000 units PO DAILY 03/12/12 Nitroglycerin [Nitrostat] 0.4 mg SL [id number] PRN 03/12/12 Aspirin (Enteric Coated) [Halfprin] 81 mg PO DAILY 01/31/14 Febuxostat [Uloric] 40 mg PO QAM 01/31/14 Insulin Glargine [Lantus Pen] 22 units SQ HS 01/31/14 Linagliptin [Tradjenta] 5 mg PO DAILY 01/31/14 Rosuvastatin Calcium [Crestor] 5 mg PO HS 01/31/14 Carvedilol [Coreg] 25 mg PO BID #60 tab 02/04/14 B Complex with Vitamin C [Super B Complex with C] 1 cap PO DAILY 12/09/14 Isosorbide Mononitrate [Imdur] 60 mg PO DAILY #30 tab 12/12/14 Amiodarone [Cordarone, Pacerone] 200 mg PO DAILY 04/04/16 Calcium Carbonate [Tums] 1 tab PO TID PRN 04/04/16 Folic Acid/Vitamin B Comp W-C [Renavit Tablet] 1 tab PO DAILY 04/04/16 HydrALAZINE (Cardiovascular) [Apresoline] 25 mg PO QID 04/04/16 Metolazone [Zaroxolyn] 2.5 mg PO TU 04/04/16 Sertraline HCl [Zoloft] 25 mg PO DAILY 04/04/16 Torsemide 20 mg PO DAILY 04/04/16 Warfarin Sodium [Coumadin] 1 mg PO Q72H 04/04/16 Warfarin Sodium [Coumadin] 2 mg PO Q72H 04/04/16 Warfarin Sodium [Coumadin] 2 mg PO Q72H 04/04/16 - Social History Travel Outside of [place] in the Last 3 Months?: No Lives: With Family Smoking Status: Never smoker Social History: Denies: Amphetamine Use, Alcohol Use, Substance Use Disorder - Family History Reports: Hypertension, Diabetes (Mother), Cancer, Stroke, Cardiac Disorders ( Siblings: abnormal heart valves, and MIs.) - Review of Systems Yes All systems reviewed and were negative except as marked Constitutional: Weakness - Cardiovascular Chest Pain (And tenderness of her chest wall where should receive CPR), Syncope. negative: Cyanosis, Edema, Orthopnea, Palpitations - Gastrointestinal Gastrointestinal: No Symptoms Reported - Physical Exam Constitutional: No apparent distress, Alert (Awake), Other (She appears somewhat chronically ill and frail but is quite alert and oriented.) Oriented to: Time, Person, Place Exam: Last Vital Signs Temp 97.9 F 04/05/16 07:58 Pulse 57 L 04/05/16 07:58 Resp 18 04/05/16 07:58 BP 134/63 04/05/16 07:58 Pulse Ox 91 04/05/16 07:58 Intake & Output 04/04/16 04/05/16 04/05/16 23:59 07:59 15:59 Intake Total 60 447 Output Total 1650 50 Balance 60 -1203 -50 Patient's weight 180 lb 1.6 oz - HEENT Head: Normal (No bruit neck vein distention or thyromegaly) Eye: Normal (PERRL, EOMI, Sclera white) Oropharynx: Normal (Pharynx:Moist without exudate,Gums-no swelling) ENT EAC: Normal TMJ: Normal Nose: No Symptoms Reported (septum midline) - Respiratory/Cardiovascular Respiratory: Normal - CTA (BBS clear to auscultation without adventitious sounds ) Cardiovascular: Other (Regular rhythm soft S1 1-2 of 6 aortic outflow murmur consistent with her mild aortic stenosis and 3 of 6 precordial MR murmur.). negative: Gallop/S3 - GI Auscultation: Normal (NABS) Palpation: Normal (Soft,No rebound or guarding, non distended) Tenderness: Non tender - Musculoskeletal Back: Normal (Non-Tender) Extremities: Normal (Normal tone, Pulses 2+ No cyanosis or edema, FROM), Femoral Pulse, Pedal Pulse, Radial Pulse. negative: Calf Tenderness, Clubbing, Cyanosis, Edema, Pedal Edema - Integumentary Skin: Normal, Warm, Dry, Other (She has generalized sallow appearance TSH will be checked) Lymphatics: Normal (no adenopathy) - Neurologic Memory Impaired: Normal Cerebellar: Normal Mood Description: Normal Perception: Normal - Lab Results Laboratory Tests 04/04/16 04/04/16 04/05/16 21:00 21:20 00:50 Hgb Hct Plt Count INR 2.3 Creatinine Estimated GFR (MDRD) Troponin I 0.05 0.13 TSH 04/05/16 04/05/16 04/05/16 00:50 03:55 03:55 Hgb Hct Plt Count INR Creatinine 4.70 H Estimated GFR (MDRD) 9 L Troponin I 0.19 TSH 10.90 H 04/05/16 03:55 Hgb 11.4 L Hct 34.6 L Plt Count 111 L INR Creatinine Estimated GFR (MDRD) Troponin I TSH Her EKGs show sinus rhythm marked LVH and repolarization, there is no sinus node or AV fátima block. - Assessment/Plan (1) Syncope R55 - SYNCOPE AND COLLAPSE Acute Present on Admission: Yes S E Comment: She presents the hospital with symptomatic bradycardia a profound syncopal episode and documented bradycardia by EMS. This occurs in the background of renal failure with prolonged half-life of her beta-natalia underlying sick sinus syndrome with paroxysmally atrial fibrillation suppressant anti rhythmic therapy with amiodarone and hypothyroidism likely due to amiodarone. I phoned my partner Dr. Peter will review the records. If she had significant tachyarrhythmia in the past her require backup pacemaker and to continue suppressant treatment, if not I would withdrawal suppressant medications monitor 48 hours and arrange for long-term ambulatory monitor for 30 days as an outpatient. I have stopped her carvedilol of stop her amiodarone and she require thyroid supplement which may be worsening her tendency to bradycardia. If she develops atrial fibrillation I would not consider converting her in the absence of a backup pacemaker and suppressant treatment. (2) Atrial fibrillation I48.91 - UNSPECIFIED ATRIAL FIBRILLATION Chronic paroxysmal I48.0 - Paroxysmal atrial fibrillation Comment: Previously described this chronic, however she is in sinus rhythm with amiodarone, it will be discontinued and she will likely resume atrial fibrillation. She will continue anticoagulation with warfarin with a high chads 2 Vasc score. All anticoagulants were associated with worsened GFR in the setting of atrial fibrillation and CKD however I would not stop this treatment. 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 I13.0 - HYP HRT & CHR KDNY DIS W HRT FAIL AND STG 1-4/UNSP CHR KDNY Acute Comment: Stable continue current treatment including hydralazine which should give a element of reflex tachycardia due for improve her sinus rhythm (4) Aortic stenosis I35.0 - NONRHEUMATIC AORTIC (VALVE) STENOSIS Chronic Present on Admission: Yes nonrheumatic I35.0 - Nonrheumatic aortic (valve) stenosis Comment: Mild by echocardiogram in 2014 typically in the elderly progress is very slowly she alerts me she just had an echocardiogram in the office in the last month and is not her the results however by examination it does not appear to be severe and she is not a candidate for surgical or percutaneous valve replacement with her great stage 5 kidney disease. (5) Mitral regurgitation I34.0 - NONRHEUMATIC MITRAL (VALVE) INSUFFICIENCY Chronic Present on Admission: Yes nonrheumatic I34.0 - Nonrheumatic mitral (valve) insufficiency Comment: Stable, heart failure is compensated (6) Hypothyroidism (acquired) E03.9 - HYPOTHYROIDISM, UNSPECIFIED Acute Present on Admission: Yes Comment: She require thyroid supplementation this may include improve her tendency to bradycardia. (7) Congestive heart failure I50.9 - HEART FAILURE, UNSPECIFIED Chronic diastolic chronic I50.32 - Chronic diastolic (congestive) heart failure Comment: Compensated continue current medications (8) On amiodarone therapy Z79.899 - OTHER SENIOR CARE (CURRENT) DRUG THERAPY Chronic Present on Admission: Yes Comment: Discontinued (9) custodial current use of anticoagulant Z79.01 - SENIOR CARE (CURRENT) USE OF ANTICOAGULANTS Chronic Present on Admission: Yes Comment: Continue warfarin with a goal INR of 2-3.5. Case Care Discussed with: Patient
--- NOTE | 2016-04-05 13:16 | GENMEDPROG ---
Chief Complaint: Syncope Subjective Note: Admitted overnight for syncopal event. Feeling much better this morning. Currently denies any chest pain, shortness of breath or sensation of palpitations. Notes Reviewed: Yes Events from last night noted and discussed with Clinical Staff Current Medication List: Reviewed DVT Prophylaxis: Yes - Physical Examination Vital Signs and I&O: Last Vital Signs Temp 99.2 F 04/05/16 12:46 Pulse 57 L 04/05/16 12:46 Resp 18 04/05/16 12:46 BP 129/53 L 04/05/16 12:46 Pulse Ox 97 04/05/16 12:46 Oxygen Pulse Oxygen Saturation 97 O2 Device Nasal Cannula Oxygen Flow Rate 2 Fraction of Inspired Oxygen ( FIO2) Intake & Output 04/03/16 04/04/16 04/05/16 04/06/16 06:59 06:59 06:59 06:59 Intake Total 507 Output Total 950 1989 Balance -443 Patient's weight 81.692 kg General: Alert, Oriented x3, Cooperative, Mild distress HEENT: EOMI (Sclera white) Neck: Normal Trachea alignment, Normal inspection Lymphatics: Normal (no adenopathy) Respiratory: Normal - CTA (BBS clear to auscultation without adventitious sounds ) Cardiovascular: Regular rate, No Gallops,Rubs/Murmurs GI: Normal bowel sounds, Soft, Non tender (non distended) Extremities/Musculoskeletal: Other (Normal Tone). negative: Edema, Cyanosis Neurological: Cranial Nerves (II-XII intact) Psych/Mental Status: Normal Affect (Fully oriented, Norla and appropriate affect ) - Assessment (1) Syncope Acute R55 - SYNCOPE AND COLLAPSE Qualifiers: Syncope type: S Encounter type: E Comment/Plan: Concerning for possible arrhythmia. Known severe mitral valve regurgitation. Plan: Cardiology Dr. Ku has been consulted and seen the patient this morning. Appreciate his thought full assistance. We discontinued the patient's beta- natalia and amiodarone. Clinic records will be reviewed by Dr. Peter, her primary junior high school principal. Further recommendations to follow. (2) Acute pulmonary edema Acute J81.0 - ACUTE PULMONARY EDEMA Comment/Plan: Mild acute component. Patient has no symptoms. Plan: Reluctant to increase Lasix, because patient's BUN/Cr is already quite high, at 95/4.7. If patient become symptomatic, consider diuresis. (3) Bradycardia Acute R00.1 - BRADYCARDIA, UNSPECIFIED Comment/Plan: Mild. Plan: Telemetry. Discontinue beta-natalia. (4) Chronic kidney disease, stage V Acute N18.5 - CHRONIC KIDNEY DISEASE, STAGE 5 Comment/Plan: Baseline Cr is 4 - 4.8. Not a candidate for dialysis per patient. Plan: BUN severely elevated. Continue follow up with bingo worker. Renal diet. 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
[2016-04-05] MEDS: OXYCODONE HCL 5 MG TABLET PO PRN (14:49)
[2016-04-05] MEDS: This patient is receiving warfarin therapy SCH (15:49)
[2016-04-06 03:27] LABS: PT-INR 2.6
[2016-04-06] MEDS: REGULAR INSULIN 100 UNITS/ML - 3 ML VIAL SQ SCH ×4 (05:43→20:26)
[2016-04-06] MEDS: ISOSORBIDE MONONITRATE 60 MG TAB PO SCH (05:43)
--- NOTE | 2016-04-06 07:51 | PCM.CARD ---
- Subjective Reason for visit: For syncope in the setting of stage 5 CKD sick sinus syndrome with bradycardia and paroxysmally atrial fibrillation on suppressive treatment with amiodarone and beta-natalia Current Assessment: No New Symptoms. negative: Chest Pain, Dizzines, Orthopnea , Palpitations, Shortness of Breath Vital Signs: Last Vital Signs Temp 97.8 F 04/06/16 03:50 Pulse 51 L 04/06/16 06:00 Resp 18 04/06/16 03:50 BP 159/77 04/06/16 03:50 Pulse Ox 95 04/06/16 03:50 Selected Entries 04/06/16 04/06/16 04/06/16 03:50 04:00 06:00 Pulse Rate 62 49 L 51 L Heart rate generally is in the 50s minimum rate recorded 49 PE: She appears chronically ill and has a sallow appearance consistent with her hypothyroidism. Respiratory: Normal - CTA. negative: Rales (She has no edema) Jugular Vein Distention: None EKG Rhythm: Sinus Rhythm (Generally sinus bradycardia 50 60 beats per minute with no recorded sinus node or AV fátima block) EKG Ectopy: negative: Runs >3 beats, Runs >10 beats (No episodes of sinus node or AV block) Lab/DI Results Reviewed: I reviewed the EKG strips from EMS at site at the home she had sinus bradycardia rates of 35-40 and also had a junctional rhythm with retrograde P waves. She did not have high-degree heart block or sinus arrest. - Assessment/Plan (1) Syncope Acute R55 - SYNCOPE AND COLLAPSE Present on Admission: Yes S E Comment/Plan: She has documented bradycardia in the setting of sick sinus syndrome and suppressant therapy with a relatively high dose of a beta-natalia for stage 5 CKD and amiodarone. I met with her daughter and the daughter relates she did have atrial fibrillation with admission [facility] with rapid rates prompting these medications. Her care is palliative or most interested in quality of life I present the family the option of proceeding on to a pacemaker with suppressant treatment her simply withdrawing the medications and following her clinically. Provided she has no recurrent bradycardia when reassessed tomorrow I would favor conservative approach she is also the wishes of the patient and family. If she has recurrent rapid atrial fibrillation require suppression I favor pacemaker. She remains anticoagulated for stroke prophylaxis regardless of her rhythm. 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 Chronic I13.0 - HYP HRT & CHR KDNY DIS W HRT FAIL AND STG 1-4/UNSP CHR KDNY Comment/Plan: Stable continue current treatment (4) Aortic stenosis Chronic I35.0 - NONRHEUMATIC AORTIC (VALVE) STENOSIS Present on Admission: Yes nonrheumatic I35.0 - Nonrheumatic aortic (valve) stenosis Comment/Plan: Stable, I would not repeat imaging studies at this time and she is not a candidate for surgical or percutaneous intervention (5) Mitral regurgitation Chronic I34.0 - NONRHEUMATIC MITRAL (VALVE) INSUFFICIENCY Present on Admission: Yes nonrheumatic I34.0 - Nonrheumatic mitral (valve) insufficiency Comment/Plan: Stable clinically (6) Hypothyroidism (acquired) Acute E03.9 - HYPOTHYROIDISM, UNSPECIFIED Present on Admission: Yes Comment/Plan: This may be a precipitant for bradycardia and should benefit from low-dose thyroid supplementation, I suspect that her hypothyroidism is due to amiodarone in occurs in about 3-5% of patients. 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 With amiodarone withdrawal should require more frequent pro times and I would do them weekly for at least 4 weeks as typically should become subtherapeutic without the potentiate muniz of amiodarone require higher doses of warfarin as an outpatient.
[2016-04-06] MEDS: hydrALAZINE 25 MG TAB PO SCH ×4 (08:38→20:50)
[2016-04-06] MEDS: ROSUVASTATIN 10 MG TAB PO SCH (08:39)
[2016-04-06] MEDS: TORSEMIDE 20 MG TAB PO SCH (08:40)
[2016-04-06] MEDS: FEBUXOSTAT 40 MG TABLET PO SCH (08:40)
[2016-04-06] MEDS: SERTRALINE HCL 25 MG TAB PO SCH (08:41)
[2016-04-06] MEDS: VIT B-C COMPLEX (NEPHROVITE) TAB PO SCH (12:05)
[2016-04-06] MEDS: CHOLECALCIFEROL 1000 UNITS TAB PO SCH (12:05)
--- NOTE | 2016-04-06 13:24 | GENMEDPROG ---
Chief Complaint: Syncope Subjective Note: Doing well this morning. Daughter is at the bedside. Notes Reviewed: Yes Events from last night noted and discussed with Clinical Staff Current Medication List: Reviewed DVT Prophylaxis: Yes - Physical Examination Vital Signs and I&O: Last Vital Signs Temp 98.1 F 04/06/16 11:48 Pulse 55 L 04/06/16 11:48 Resp 18 04/06/16 11:48 BP 133/59 L 04/06/16 11:48 Pulse Ox 96 04/06/16 11:48 Oxygen Pulse Oxygen Saturation 96 O2 Device Nasal Cannula Oxygen Flow Rate 2 Fraction of Inspired Oxygen ( FIO2) Intake & Output 04/04/16 04/05/16 04/06/16 04/07/16 06:59 06:59 06:59 06:59 Intake Total 883 420 Output Total 3260 1260 Balance -2377 -840 Patient's weight 82.554 kg General: Alert, Oriented x3, Cooperative HEENT: Normal Neck: Non-tender Respiratory: Normal - CTA. negative: Rales (She has no edema) Cardiovascular: Regular rate, No Gallops,Rubs/Murmurs GI: Normal bowel sounds, Soft, Non tender (non distended) Extremities/Musculoskeletal: Other (Normal Tone). negative: Edema, Cyanosis Lab/DI/Studies Reviewed: Laboratory Tests 04/04/16 04/05/16 04/05/16 21:20 00:50 03:55 WBC Hgb Hct Plt Count INR Potassium 4.3 BUN 96 H Creatinine 4.70 H 4.70 H Troponin I 0.13 04/05/16 04/06/16 03:55 02:40 WBC 8.6 Hgb 11.4 L Hct 34.6 L Plt Count 111 L INR 2.6 Potassium BUN Creatinine Troponin I - Assessment (1) Syncope Acute R55 - SYNCOPE AND COLLAPSE Qualifiers: Syncope type: S Encounter type: E Comment/Plan: Concerning for possible arrhythmia. She does have a history of tachyarrhythmia, with atrial fibrillation. She was placed as an outpatient on amiodarone as well as beta-natalia. Known severe mitral valve regurgitation. Plan: Cardiology Dr. Ku has been consulted and is following along. Appreciate his assistance. He reviewed her outpatient cardiology notes, as well as outside records. He recommends discontinuing beta-natalia and amiodarone. The patient could be a candidate for pacemaker, however in discussion with the patient and her daughter, they would like a more comfort based approach without invasive intervention unless entirely necessary. As such, the patient may likely be discharged home on minimal medical management in the morning per Cardiology if she continues to do well. She does need to stay on therapeutic Coumadin for stroke prevention. (2) Acute pulmonary edema Acute J81.0 - ACUTE PULMONARY EDEMA Comment/Plan: Mild acute component. Patient has no symptoms. Plan: Reluctant to increase Lasix, because patient's BUN/Cr is already quite high, at 95/4.7. If patient become symptomatic, consider diuresis. (3) Bradycardia Acute R00.1 - BRADYCARDIA, UNSPECIFIED Comment/Plan: Mild. Plan: Telemetry. Discontinue beta-natalia. (4) Chronic kidney disease, stage V Acute N18.5 - CHRONIC KIDNEY DISEASE, STAGE 5 Comment/Plan: Baseline Cr is 4 - 4.8. Not a candidate for dialysis per patient. Plan: BUN severely elevated. Continue follow up with nitric acid plant operator. Renal diet. 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 Chronic I13.0 - HYP HRT & CHR KDNY DIS W HRT FAIL AND STG 1-4/UNSP CHR KDNY (6) Hypothyroidism (acquired) Acute E03.9 - HYPOTHYROIDISM, UNSPECIFIED (7) Aortic stenosis Chronic I35.0 - NONRHEUMATIC AORTIC (VALVE) STENOSIS Qualifiers: Cardiac valve disease etiology: nonrheumatic Qualified Code(s): I35.0 - Nonrheumatic aortic (valve) stenosis (8) Atrial fibrillation Chronic I48.91 - UNSPECIFIED ATRIAL FIBRILLATION Qualifiers: Atrial fibrillation type: paroxysmal Qualified Code(s): I48.0 - Paroxysmal atrial fibrillation Case Care Discussed with: Patient, Consultants, Family, Nursing Staff Total Time: 41
[2016-04-06] MEDS: This patient is receiving warfarin therapy SCH (15:53)
[2016-04-06] MEDS: WARFARIN 2 MG TAB PO SCH (17:54)
[2016-04-06] MEDS: GLARGINE INSULIN (LANTUS) 100 UNITS/ML PEN SQ SCH (20:50)
[2016-04-06] MEDS: OXYCODONE HCL 5 MG TABLET PO PRN (20:53)
[2016-04-07] MEDS: ISOSORBIDE MONONITRATE 60 MG TAB PO SCH (05:48)
[2016-04-07 05:49] LABS: PT-INR 2.5
[2016-04-07] MEDS: REGULAR INSULIN 100 UNITS/ML - 3 ML VIAL SQ SCH ×4 (06:43→22:42)
[2016-04-07] MEDS: hydrALAZINE 25 MG TAB PO SCH ×4 (07:50→20:41)
[2016-04-07] MEDS: ROSUVASTATIN 10 MG TAB PO SCH (07:51)
[2016-04-07] MEDS: TORSEMIDE 20 MG TAB PO SCH (07:51)
[2016-04-07] MEDS: SERTRALINE HCL 25 MG TAB PO SCH (07:52)
[2016-04-07] MEDS: FEBUXOSTAT 40 MG TABLET PO SCH (07:52)
[2016-04-07] MEDS: OXYCODONE HCL 5 MG TABLET PO PRN (07:55)
--- NOTE | 2016-04-07 08:51 | PCM.CARD ---
- Subjective Reason for visit: Syncope with bradycardia Current Assessment: Other (She is unable to ambulate because of back pain). negative: Chest Pain, Dizzines, Nausea, Palpitations, Shortness of Breath, Syncope, Vomiting Vital Signs: Last Vital Signs Temp 98.5 F 04/07/16 07:32 Pulse 54 L 04/07/16 07:57 Resp 18 04/07/16 07:32 BP 137/71 04/07/16 07:32 Pulse Ox 95 04/07/16 07:32 Selected Entries 04/06/16 04/06/16 04/07/16 16:00 19:47 04:00 Pulse Rate 51 L 60 62 04/07/16 04/07/16 04/07/16 06:00 07:32 07:57 Pulse Rate 55 L 61 54 L PE: Telemetry shows heart rates closer to 60 beats per minute since she has been off of her beta-natalia., no episodes of sinus node or AV block Respiratory: Diminished Jugular Vein Distention: None Pulse Rhythm: Irregular EKG Rhythm: Atrial Fibrillation (Controlled atrial fibrillation off amiodarone off beta-natalia) EKG Ectopy: negative: Runs >10 beats Heart Sounds: negative: S1 & S2 (Variable 1st heart sound), S3, Murmur (No neck vein distention) Discharge Disposition Plan: Laboratory Tests 04/05/16 03:55 Hgb 11.4 L Hct 34.6 L - Assessment/Plan (1) Syncope Acute R55 - SYNCOPE AND COLLAPSE Present on Admission: Yes unspecified E R55 - Syncope and collapse Comment/Plan: Due to documented bradycardia in the setting of sick sinus syndrome chronic atrial fibrillation and suppressant treatment beta-natalia and amiodarone. I have stopped her medications I met with her daughter she has stage 5 CKD in her care is best described is palliative. For now will keep her anticoagulated avoid any suppressant medications and she develops rapid symptomatic atrial fibrillation require backup pacemaker for suppressant treatment. Potentially she could go back on low-dose amiodarone as an outpatient however I would like to see her use ambulatory heart rate monitor for a month before that. 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 I13.0 - HYP HRT & CHR KDNY DIS W HRT FAIL AND STG 1-4/UNSP CHR KDNY Comment/Plan: Stable off carvedilol on her combined loop diuretic and metabolism (4) Aortic stenosis Chronic I35.0 - NONRHEUMATIC AORTIC (VALVE) STENOSIS Present on Admission: Yes nonrheumatic I35.0 - Nonrheumatic aortic (valve) stenosis Comment/Plan: Mild stable (5) Mitral regurgitation Chronic I34.0 - NONRHEUMATIC MITRAL (VALVE) INSUFFICIENCY Present on Admission: Yes nonrheumatic I34.0 - Nonrheumatic mitral (valve) insufficiency Comment/Plan: Mild stable (6) Congestive heart failure Chronic I50.9 - HEART FAILURE, UNSPECIFIED diastolic chronic I50.32 - Chronic diastolic (congestive) heart failure (7) On amiodarone therapy Resolved Z79.899 - OTHER CHICK[employer] STUFFER (CURRENT) DRUG THERAPY Present on Admission: Yes (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
--- NOTE | 2016-04-07 11:57 | GENMEDPROG ---
Chief Complaint: LS PAIN, NOT WALKING, WANTS XRAY, HX R HIP REPLACEMENT 15 YRS AGO Notes Reviewed: Yes Events from last night noted and discussed with Clinical Staff Current Medication List: Reviewed DVT Prophylaxis: Yes - Physical Examination Vital Signs and I&O: Last Vital Signs Temp 98.5 F 04/07/16 07:32 Pulse 57 L 04/07/16 11:38 Resp 18 04/07/16 11:38 BP 127/60 04/07/16 11:38 Pulse Ox 97 04/07/16 11:38 Oxygen Pulse Oxygen Saturation 97 O2 Device Nasal Cannula Oxygen Flow Rate 2 Fraction of Inspired Oxygen ( FIO2) Intake & Output 04/04/16 04/05/16 04/06/16 04/07/16 23:59 23:59 23:59 23:59 Intake Total 763 700 120 Output Total 6036 8099 1300 Balance -4785 -4283 -0317 Patient's weight 82.554 kg 83.053 kg General: Alert, Oriented x3, Cooperative HEENT: Normal Neck: Non-tender, Normal Trachea alignment, Normal inspection Lymphatics: Normal (No lymph node swelling or pain.) Respiratory: Normal - CTA, Diminished. negative: Rales (She has no edema), Rhonchi, Wheezes Cardiovascular: Normal S1, Normal S2, Murmurs (CHEMO 2/6), Irregular. negative: Regular rate and rhythm GI: Normal bowel sounds, Soft, Non tender (non distended) Extremities/Musculoskeletal: Other (ER IR TOBIAS R HIP L OK SEES DR BOSS). negative: Swelling, Edema, Clubbing, Cyanosis Skin: Warm,Dry and Intact, No rashes, No significant lesion Neurological: Normal tone, Cranial nerves 3-12 NL ( 2-12 grossly intact.). negative: Strength at 5/5 X4 ext Psych/Mental Status: Appropriate, Normal Affect Lab/DI/Studies Reviewed: 04/05/16 03:55 04/05/16 03:55 Laboratory Results - last 24 hr 04/05/16 04/06/16 04/06/16 02:00 15:55 19:46 PT INR POC Capillary Glucose 133 H 141 H Ur Random Microalbumin 187.4 04/07/16 04/07/16 04/07/16 05:05 06:06 10:28 PT 25.5 H INR 2.5 POC Capillary Glucose 115 H 135 H Ur Random Microalbumin - Assessment (1) Bradycardia Acute R00.1 - BRADYCARDIA, UNSPECIFIED Comment/Plan: Telemetry. Discontinued beta-natalia. Heart rate gradually improving. (2) Syncope Acute R55 - SYNCOPE AND COLLAPSE Qualifiers: Syncope type: unspecified Encounter type: E Qualified Code(s): R55 - Syncope and collapse Comment/Plan: Concerning for possible arrhythmia. She does have a history of tachyarrhythmia, with atrial fibrillation. She was placed as an outpatient on amiodarone as well as beta-natalia. Known severe mitral valve regurgitation. Cardiology Dr. Ku has been consulted and is following along. Appreciate his assistance. He reviewed her outpatient cardiology notes, as well as outside records. He recommends discontinuing beta-natalia and amiodarone. The patient could be a candidate for pacemaker, however in discussion with the patient and her daughter, they would like a more comfort based approach without invasive intervention unless entirely necessary. As such, the patient may likely be discharged home on minimal medical management in the morning per Cardiology if she continues to do well. She does need to stay on therapeutic Coumadin for stroke prevention. (3) Aortic stenosis Chronic I35.0 - NONRHEUMATIC AORTIC (VALVE) STENOSIS Qualifiers: Cardiac valve disease etiology: nonrheumatic Qualified Code(s): I35.0 - Nonrheumatic aortic (valve) stenosis Comment/Plan: Last echocardiogram I have access to showed mild aortic stenosis with a valve area of 1.7 centimeters squared and mitral regurgitation which was moderate. Patient states her last echo was done in January 2016. Will obtain a copy of this. (4) Atrial fibrillation Chronic I48.91 - UNSPECIFIED ATRIAL FIBRILLATION Qualifiers: Atrial fibrillation type: paroxysmal Qualified Code(s): I48.0 - Paroxysmal atrial fibrillation Comment/Plan: Patient taking Coumadin for this and INR is therapeutic. 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 (6) Congestive heart failure Chronic I50.9 - HEART FAILURE, UNSPECIFIED Qualifiers: Congestive heart failure type: diastolic Congestive heart failure chronicity: chronic Qualified Code(s): I50.32 - Chronic diastolic (congestive ) heart failure Comment/Plan: Continue medical therapy. Patient seems compensated. The Lasix changed to p.o. Demodex and Zaroxolyn. Monitor weight. Continues salt restriction. Case Care Discussed with: Patient, Family, Nursing Staff, Resource Management Education/Counseling Given To: Patient, Family Member Education/Counseling Given Regarding: Diagnosis Total Time: 38 minutes Critical Care: No Code: 57366 (12+)
[2016-04-07] MEDS: VIT B-C COMPLEX (NEPHROVITE) TAB PO SCH (12:11)
[2016-04-07] MEDS: CHOLECALCIFEROL 1000 UNITS TAB PO SCH (12:11)
[2016-04-07] MEDS ORDERED: OXYCODONE HCL 5 MG TABLET PO ONE (15:29)
[2016-04-07] MEDS ORDERED: MORPHINE 2 MG/ML INJECTION IV ONE (16:00)
--- NOTE | 2016-04-07 16:56 | DIRPT ---
CLINICAL DATA: Back pain post fall. EXAM: LUMBAR SPINE - COMPLETE 4+ VIEW COMPARISON: None. FINDINGS: There is no evidence of lumbar spine fracture. There is levoconvex scoliosis with advanced osteoarthritic changes at all levels, worse in the lower lumbosacral spine. Posterior facet arthropathy is also seen in the lower lumbosacral spine, with apparent bilateral bony neural foramina narrowing at L2-L3, L3-L4, L4-L5 and L5-S1. Extensive atherosclerotic calcifications of the aorta, and its main branches. 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 IMPRESSION: No acute fracture or subluxation identified about the lumbosacral spine. Extensive osteoarthritic changes, posterior facet arthropathy and subsequent lower lumbosacral spine bony neural foramina narrowing. Electronically Signed By: Nellie Calderon M.D. On: 04/07/2016 16:54
[2016-04-07] MEDS: This patient is receiving warfarin therapy SCH (17:09)
[2016-04-07] MEDS: WARFARIN 2 MG TAB PO SCH (17:10)
[2016-04-07] MEDS: GLARGINE INSULIN (LANTUS) 100 UNITS/ML PEN SQ SCH (20:41)
[2016-04-08] MEDS: ISOSORBIDE MONONITRATE 60 MG TAB PO SCH (05:18)
[2016-04-08] MEDS: REGULAR INSULIN 100 UNITS/ML - 3 ML VIAL SQ SCH ×4 (05:20→21:43)
[2016-04-08 05:30] LABS: PT-INR 2.4
[2016-04-08 05:33] LABS: BLOOD UREA NITROGEN 87 MG/DL (7-17); CALCIUM 8.6 MG/DL (8.4-10.2); CALCULATED OSMOLALITY 302 MOs/Kg (270-290); CHLORIDE 107 mEq/L (98-107); GLUCOSE 91 MG/DL (70-99); SODIUM LEVEL 143 mEq/L (137-146)
[2016-04-08] MEDS: hydrALAZINE 25 MG TAB PO SCH ×4 (08:17→21:42)
[2016-04-08] MEDS: SERTRALINE HCL 25 MG TAB PO SCH (08:17)
[2016-04-08] MEDS: ROSUVASTATIN 10 MG TAB PO SCH (08:17)
[2016-04-08] MEDS: TORSEMIDE 20 MG TAB PO SCH (08:17)
[2016-04-08] MEDS: FEBUXOSTAT 40 MG TABLET PO SCH (08:17)
--- NOTE | 2016-04-08 09:29 | PCM.CARD ---
- Subjective Reason for visit: Follow up after syncope. Doing fine complained being weak but no other symptoms. No chest pain. Vital Signs: Last Vital Signs Temp 98.8 F 04/08/16 04:00 Pulse 61 04/08/16 08:00 Resp 18 04/08/16 04:00 BP 144/71 04/08/16 04:00 Pulse Ox 97 04/08/16 04:00 PE: General Appearance: Well developed. Well nourished. In no acute distress. Lungs: Chest was not overinflated. Clear to auscultation. Cardiovascular: Jugular Venous Distention: JVD not increased. Heart Rate And Rhythm: Normal. Heart Sounds: Normal. Murmurs: Systolic murmur grade 1-2/6 best heard at the right upper portion of the sternum radiation towards the neck. S2 is still present. Carotid Arteries: Carotid pulses were normal. No bruit in the carotid artery. Edema: Not present. Lower extremities pulses normal (including femoral popliteal and dorsalis pedis) . Musculoskeletal System: General/bilateral: No cyanosis of the fingers. Neurological: Oriented to time, place, and person. Nails: No clubbing of the fingernails. Lab/DI Results Reviewed: Laboratory Results - last 24 hr 04/07/16 04/07/16 04/07/16 10:28 16:07 20:53 WBC RBC Hgb Hct MCV MCH MCHC RDW Plt Count MPV PT INR Sodium Potassium Chloride Carbon Dioxide Anion Gap BUN Creatinine Estimated GFR (MDRD) Glucose POC Capillary Glucose 135 H 171 H 147 H Calculated Osmolality Calcium 04/08/16 04/08/16 04/08/16 05:00 05:00 05:00 WBC 8.3 RBC 3.41 L Hgb 10.3 L Hct 31.7 L MCV 93 MCH 30.3 MCHC 32.6 L RDW 18.3 H Plt Count 108 L MPV 10.0 PT 24.6 H INR 2.4 Sodium 143 Potassium 4.1 Chloride 107 Carbon Dioxide 26 Anion Gap 14 BUN 87 H Creatinine 4.40 H Estimated GFR (MDRD) 9 L Glucose 91 POC Capillary Glucose Calculated Osmolality 302 H Calcium 8.6 04/08/16 05:20 WBC RBC Hgb Hct MCV MCH MCHC RDW Plt Count MPV PT INR Sodium Potassium Chloride Carbon Dioxide Anion Gap BUN Creatinine Estimated GFR (MDRD) Glucose POC Capillary Glucose 98 Calculated Osmolality Calcium - Assessment/Plan (1) Bradycardia Chronic R00.1 - BRADYCARDIA, UNSPECIFIED Present on Admission: Yes Comment/Plan: Beta-natalia as well as amiodarone withdrawn. Her heart rate maintained at the level of 60-65 at rest. Will continue monitoring. What concern is possibility of tachy-ej syndrome. 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 (2) Syncope Acute R55 - SYNCOPE AND COLLAPSE Present on Admission: Yes unspecified E R55 - Syncope and collapse Comment/Plan: Most likely related to bradycardia. 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 Beta- natalia as well as amiodarone has being withdrawn. Will continue monitoring. (3) Aortic stenosis Chronic I35.0 - NONRHEUMATIC AORTIC (VALVE) STENOSIS Present on Admission: Yes nonrheumatic I35.0 - Nonrheumatic aortic (valve) stenosis Comment/Plan: Not critical based on last echocardiogram done last year. (4) Atrial fibrillation Chronic I48.91 - UNSPECIFIED ATRIAL FIBRILLATION paroxysmal I48.0 - Paroxysmal atrial fibrillation Comment/Plan: Maintained sinus rhythm. Anticoagulated with INR between 2 and 3. Will continue. (5) Type 2 diabetes mellitus with diabetic nephropathy Acute E11.21 - TYPE 2 DIABETES MELLITUS WITH DIABETIC NEPHROPATHY Present on Admission: Yes D Comment/Plan: Follow up by primary care team. (6) DM2 (diabetes mellitus, type 2) Chronic E11.9 - TYPE 2 DIABETES MELLITUS WITHOUT COMPLICATIONS D D D P D D L C Comment/Plan: Follow up by Internal Medicine team. - Plan Overall lady with episodes of syncope quite profound. Suspicion for significant bradycardia is there. Beta-natalia and amiodarone has being withdrawn. Will watch for signs of tachy-ej syndrome so far telemetry monitoring is unrevealing. Will do event recorder as an outpatient.
[2016-04-08] MEDS: OXYCODONE HCL 5 MG TABLET PO PRN ×2 (10:14→17:11)
--- NOTE | 2016-04-08 12:21 | GENMEDPROG ---
Chief Complaint: unable to walk due to pain refused mri due to pain Notes Reviewed: Yes Events from last night noted and discussed with Clinical Staff Current Medication List: Reviewed DVT Prophylaxis: Yes - Physical Examination Vital Signs and I&O: Last Vital Signs Temp 99.4 F 04/08/16 08:00 Pulse 69 04/08/16 10:00 Resp 18 04/08/16 08:00 BP 120/61 04/08/16 08:00 Pulse Ox 97 04/08/16 09:30 Oxygen Pulse Oxygen Saturation 97 O2 Device Nasal Cannula Oxygen Flow Rate 2 Fraction of Inspired Oxygen ( FIO2) Intake & Output 04/05/16 04/06/16 04/07/16 04/08/16 23:59 23:59 23:59 23:59 Intake Total 763 700 360 Output Total 2210 4629 8424 900 Balance -1447 -3920 -940 -900 Patient's weight 82.554 kg 83.053 kg 82.327 kg General: Alert, Oriented x3, Cooperative HEENT: Normal Neck: Non-tender, Normal Trachea alignment, Normal inspection Lymphatics: Normal (No lymph node swelling or pain.) Respiratory: Normal - CTA, Diminished. negative: Rales (She has no edema), Rhonchi, Wheezes Cardiovascular: Normal S1, Normal S2, Murmurs (CHEMO 2/6), Irregular. negative: Regular rate and rhythm GI: Normal bowel sounds, Soft, Non tender (non distended) Extremities/Musculoskeletal: Other (ER IR TOBIAS R HIP L [place] SEES DR BOSS). negative: Swelling, Edema, Clubbing, Cyanosis Skin: Warm,Dry and Intact, No rashes, No significant lesion Neurological: Normal tone, Cranial nerves 3-12 NL ( 2-12 grossly intact.). negative: Strength at 5/5 X4 ext Psych/Mental Status: Appropriate, Normal Affect Lab/DI/Studies Reviewed: 04/08/16 05:00 04/08/16 05:00 Laboratory Results - last 24 hr 04/07/16 04/07/16 04/08/16 16:07 20:53 05:00 WBC RBC Hgb Hct MCV MCH MCHC RDW Plt Count MPV PT 24.6 H INR 2.4 Sodium Potassium Chloride Carbon Dioxide Anion Gap BUN Creatinine Estimated GFR (MDRD) Glucose POC Capillary Glucose 171 H 147 H Calculated Osmolality Calcium 0104/08/16 04/08/16 05:00 05:00 05:20 WBC 8.3 RBC 3.41 L Hgb 10.3 L Hct 31.7 L MCV 93 MCH 30.3 MCHC 32.6 L RDW 18.3 H Plt Count 108 L MPV 10.0 PT INR Sodium 143 Potassium 4.1 Chloride 107 Carbon Dioxide 26 Anion Gap 14 BUN 87 H Creatinine 4.40 H Estimated GFR (MDRD) 9 L Glucose 91 POC Capillary Glucose 98 Calculated Osmolality 302 H Calcium 8.6 04/08/16 10:39 WBC RBC Hgb Hct MCV MCH MCHC RDW Plt Count MPV PT INR Sodium Potassium Chloride Carbon Dioxide Anion Gap BUN Creatinine Estimated GFR (MDRD) Glucose POC Capillary Glucose 113 H Calculated Osmolality Calcium - Assessment (1) Bradycardia Chronic R00.1 - BRADYCARDIA, UNSPECIFIED Comment/Plan: Telemetry. Discontinued beta-natalia. Heart rate gradually improving. (2) Syncope Acute R55 - SYNCOPE AND COLLAPSE Qualifiers: Syncope type: unspecified Encounter type: E Qualified Code(s): R55 - Syncope and collapse Comment/Plan: Concerning for possible arrhythmia. She does have a history of tachyarrhythmia, with atrial fibrillation. She was placed as an outpatient on amiodarone as well as beta-natalia. Known severe mitral valve regurgitation. Cardiology Dr. Ku has been consulted and is following along. Appreciate his assistance. He reviewed her outpatient cardiology notes, as well as outside records. He recommends discontinuing beta-natalia and amiodarone. The patient could be a candidate for pacemaker, however in discussion with the patient and her daughter, they would like a more comfort based approach without invasive intervention unless entirely necessary. As such, the patient may likely be discharged home on minimal medical management in the morning per Cardiology if she continues to do well. She does need to stay on therapeutic Coumadin for stroke prevention. (3) Aortic stenosis Chronic I35.0 - NONRHEUMATIC AORTIC (VALVE) STENOSIS Qualifiers: Cardiac valve disease etiology: nonrheumatic Qualified Code(s): I35.0 - Nonrheumatic aortic (valve) stenosis Comment/Plan: Last echocardiogram I have access to showed mild aortic stenosis with a valve area of 1.7 centimeters squared and mitral regurgitation which was moderate. Patient states her last echo was done in January 2016. Will obtain a copy of this. (4) Atrial fibrillation Chronic I48.91 - UNSPECIFIED ATRIAL FIBRILLATION Qualifiers: Atrial fibrillation type: paroxysmal Qualified Code(s): I48.0 - Paroxysmal atrial fibrillation Comment/Plan: Patient taking Coumadin for this and INR is therapeutic. 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 (6) Congestive heart failure Chronic I50.9 - HEART FAILURE, UNSPECIFIED Qualifiers: Congestive heart failure type: diastolic Congestive heart failure chronicity: chronic Qualified Code(s): I50.32 - Chronic diastolic (congestive ) heart failure Comment/Plan: Continue medical therapy. Patient seems compensated. The Lasix changed to p.o. Demodex and Zaroxolyn. Monitor weight. Continues salt restriction. Case Care Discussed with: Patient, Consultants, Family, Nursing Staff, Resource Management Education/Counseling Given To: Patient, Family Member Education/Counseling Given Regarding: Diagnosis Total Time: 39 min Critical Care: No Code: 69921 (12+)
[2016-04-08] MEDS ORDERED: MORPHINE 2 MG/ML INJECTION IV ONE (12:30)
--- NOTE | 2016-04-08 12:31 | PCM.ORTHCO ---
Consultation Date: 04/08/16 Reason for Consult: Other (lower back pain) - History of Present Illness Mrs. Park is an 86 year old female who is familiar to our practice, presented to the ED following a syncopal episode. Incident occured on 04/04/16. She did not fall, but was instead caught by her daughter and son in law. She did report increased lower back pain following the incident however. She has been evaluated in the past for lower back pain and completed an MRI previously which revealed stenosis along L4-L5 and a left sided 1cm synovial cyst. She was treated with CHOLO injections by Dr. Hart at that time. She does have pain into bilateral hips currently, but denies further radiation of that pain. No loss of bowel or bladder function. Denies numbness or tingling. No other orthopedic concerns at this time. Patient ambulates with a walker. She lives with her daughter and son-in-law. Patient currently being evaluated for her syncopal episode and bradycardia. She has multiple other medical issues including Afib, Aortic stenosis, DM, CKD. Chief Complaint: syncope - Past Medical and Surgical History Cardiac History: Reports: Atrial Fibrillation, Congestive Heart Failure, Valvular Heart Disease, Syncope GI/ History: Reports: Renal Disease, Renal Failure Systemic History: Reports: Diabetes Musculoskeletal History: Reports: Arthritis, Osteoarthritis Psychological History: Reports: Anxiety. Denies: Substance Use Disorder Allergies No Known Allergies Allergy (Verified 12/09/14 10:44) Home Medications Cholecalciferol [Vitamin D3 (cholecalciferol)] 1,000 units PO DAILY 03/12/12 Nitroglycerin [Nitrostat] 0.4 mg SL [id number] PRN 03/12/12 Aspirin (Enteric Coated) [Halfprin] 81 mg PO DAILY 01/31/14 Febuxostat [Uloric] 40 mg PO QAM 01/31/14 Insulin Glargine [Lantus Pen] 22 units SQ HS 01/31/14 Linagliptin [Tradjenta] 5 mg PO DAILY 01/31/14 Rosuvastatin Calcium [Crestor] 5 mg PO HS 01/31/14 Carvedilol [Coreg] 25 mg PO BID #60 tab 02/04/14 B Complex with Vitamin C [Super B Complex with C] 1 cap PO DAILY 12/09/14 Isosorbide Mononitrate [Imdur] 60 mg PO DAILY #30 tab 12/12/14 Amiodarone [Cordarone, Pacerone] 200 mg PO DAILY 04/04/16 Calcium Carbonate [Tums] 1 tab PO TID PRN 04/04/16 Folic Acid/Vitamin B Comp W-C [Renavit Tablet] 1 tab PO DAILY 04/04/16 HydrALAZINE (Cardiovascular) [Apresoline] 25 mg PO QID 04/04/16 Metolazone [Zaroxolyn] 2.5 mg PO TU 04/04/16 Sertraline HCl [Zoloft] 25 mg PO DAILY 04/04/16 Torsemide 20 mg PO DAILY 04/04/16 Warfarin Sodium [Coumadin] 1 mg PO Q72H 04/04/16 Warfarin Sodium [Coumadin] 2 mg PO Q72H 04/04/16 Warfarin Sodium [Coumadin] 2 mg PO Q72H 04/04/16 - Social History Lives: With Family Social History: Denies: Substance Use Disorder - Family History Reports: Hypertension, Diabetes (Mother), Cancer, Stroke, Cardiac Disorders ( Siblings: abnormal heart valves, and MIs.) - Review of Systems Constitutional: negative: Chills, Fever Respiratory: negative: Shortness of Breath Cardiovascular: negative: Chest Pain Gastrointestinal: negative: Nausea, Vomiting Neurological: negative: Numbness, Tingling Musculoskeletal:: Other (lower back pain into bilateral hips.) - Physical Exam Vital Signs: Initial Vitals Temperature 97.2 F L 04/04/16 19:12 Pulse Rate 61 04/04/16 19:12 Respiratory Rate 22 04/04/16 19:12 Blood Pressure 161/67 04/04/16 19:12 Pulse Oxygen Saturation 97 04/04/16 19:12 Last Vital Signs Temp 99.4 F 04/08/16 08:00 Pulse 69 04/08/16 10:00 Resp 18 04/08/16 08:00 BP 120/61 04/08/16 08:00 Pulse Ox 97 04/08/16 09:30 Constitutional: No apparent distress, Alert, Well appearing Oriented to: Time, Person, Place - HEENT Head: Normal - Musculoskeletal Extremities: Pedal Pulse, Other (Plantarflexion and dorsiflexion intact. SITLT. ) - Neurologic Memory Impaired: Normal Motor Function: Normal Cranial Nerve: Normal Cerebellar: Normal Mood Description: Normal Thought: Coherent Perception: Normal - Lab Results 04/08/16 05:00 04/08/16 05:00 - Assessment/Plan (1) Low back pain M54.5 - LOW BACK PAIN Acute Present on Admission: Yes acute bilateral without sciatica S M54.5 - Low back pain Case Care Discussed with: Patient, Family Plan: Previous MRI has been reviewed which revealed L4-L5 stenosis and a 1cm synovial cyst. She did have injections at that time. Symptoms may possibly be an acute exacerbation of this problem. She is currently on anti-coagulation therapy and would not recommend CHOLO injections. Will await new MRI and if no significant changes, will likely recommend medical management and follow-up as an outpatient.
[2016-04-08] MEDS: VIT B-C COMPLEX (NEPHROVITE) TAB PO SCH (12:57)
[2016-04-08] MEDS: CHOLECALCIFEROL 1000 UNITS TAB PO SCH (12:57)
--- NOTE | 2016-04-08 13:50 | DIRPT ---
CLINICAL DATA: Pain in left wrist today. No known injury. EXAM: LEFT WRIST - COMPLETE 3+ VIEW COMPARISON: None. FINDINGS: There is marked degenerative change of the first carpometacarpal joint, associated with subluxation and spurring. Bone mineral density is diminished. There is no acute fracture or traumatic subluxation. Atherosclerotic calcification of the small vessels. IMPRESSION: 1. No evidence for acute abnormality. 2. Degenerative changes. Electronically Signed By: Mary Ramos M.D. On: 04/08/2016 13:48
[2016-04-08] MEDS: WARFARIN 2 MG TAB PO SCH (17:11)
[2016-04-08] MEDS: This patient is receiving warfarin therapy SCH (17:11)
[2016-04-08] MEDS: GLARGINE INSULIN (LANTUS) 100 UNITS/ML PEN SQ SCH (21:42)
[2016-04-09 04:54] LABS: PT-INR 2.1
[2016-04-09] MEDS: REGULAR INSULIN 100 UNITS/ML - 3 ML VIAL SQ SCH ×4 (06:21→22:35)
[2016-04-09] MEDS: ISOSORBIDE MONONITRATE 60 MG TAB PO SCH (06:21)
--- NOTE | 2016-04-09 07:30 | PCM.ORTHBL ---
- Subjective Daily Assessment - Patient: Reports: No new complaints, Awake Alert Oriented x4 , Still having pain (controlled with medication), Tolerating Regular Diet, Afebrile, Ambulating with Physical Therapist (limited by back pain), Other ( denies chest pain). Denies: Shortness of breath, Nausea, Vomiting - Objective / Physical Exam Vital Signs: Temperature: 98.6 F (04/09/16 04:00) HR: 54 (04/09/16 07:19)RR: 18 (04/09/16 04: 00) BP: 130/62 (04/09/16 04:00)Pulse Ox: 93 (04/09/16 04:00) General: Alert, Oriented x3, Cooperative, No acute distress, Well appearing Musculoskeletal / Extremities: 2 plus Dorsalis Pedis Pulse Neurological: Positive Sensation First Dorsal Web Space, Sensation to light touch intact, Extensor Hallicus Longus Intact, Flexor Hallicus Longus Intact, Dorsiflexion Intact, Plantarflexion Intact Spine: painful range of motion Laboratory/Diagnostics Reviewed: CLINICAL DATA: Generalized low back pain since falling 2 weeks ago. No leg pain or previous relevant surgery. EXAM: MRI LUMBAR SPINE WITHOUT CONTRAST TECHNIQUE: Multiplanar, multisequence MR imaging of the lumbar spine was performed. No intravenous contrast was administered. COMPARISON: Lumbar spine radiographs 04/07/2016, lumbar MRI a 03/27/[address] 03/12/2012. FINDINGS: Segmentation: Conventional anatomy assumed, with the last open disc space designated L5-S1. Alignment: The alignment is similar to the prior examination with a convex left scoliosis and grade 1 anterolisthesis at L4-5 and L5-S1. Bones: The previously demonstrated T2 hyperintensity within the L3-4 disc space has improved. There is new hyperintensity within the L1-2 disc space which is asymmetric to the right. There is some paraspinal edema on the right at this level, but no focal fluid collection or endplate destruction. There are endplate degenerative changes throughout the lumbar spine which are mildly progressive. Conus medullaris: Extends to the L1-2 level and appears normal. Paraspinal and other soft tissues: As above, mild paraspinal edema on the right at L1-2. Best seen on the coronal images are multiple renal lesions bilaterally demonstrating low T2 signal. The largest of these measures 2.3 cm in the interpolar region of the left kidney (coronal image number 11). On the prior noncontrast CT, there was a small hyperdense lesion in this area. There is a large simple appearing cyst in the lower pole of the left kidney, measuring up to 4.6 cm. Disc levels: L1-2: Progressive disc degeneration with asymmetric disc bulging, paraspinal osteophytes and discal T2 hyperintensity on the right as noted above. There is mild facet and ligamentous hypertrophy and mild right foraminal narrowing. No nerve root encroachment. L2-3: Chronic spondylosis with loss of disc height, annular disc bulging and endplate osteophytes asymmetric to the right. Mild facet and ligamentous hypertrophy. There is stable mild spinal stenosis and mild right foraminal narrowing. L3-4: Chronic loss of disc height with annular disc bulging and paraspinal osteophytes. There is moderate facet and ligamentous hypertrophy. These factors contribute to moderate spinal stenosis which is similar to the prior examination. There is asymmetric narrowing of the left lateral recess and mild foraminal narrowing bilaterally. L4-5: Stable mild loss of disc height with annular disc bulging. There is moderate facet and ligamentous hypertrophy contributing to mild to moderate foraminal narrowing bilaterally. The previously demonstrated synovial cyst extending medially from the left facet joint is no longer seen. There is persistent moderate multifactorial spinal stenosis with asymmetric narrowing of the left lateral recess. In addition, there is suspicion of a focal extraforaminal disc extrusion on the left, best seen on axial image 22 of series 4. This may contribute to extraforaminal left L4 nerve root encroachment. L5-S1: Disc height is relatively maintained. There is stable asymmetric facet hypertrophy on the left and mild disc bulging. No significant spinal stenosis or nerve root encroachment. IMPRESSION: 1. No definite acute posttraumatic findings related to recent fall. 2. Multilevel lumbar spondylosis, mildly progressive from prior MRI of 2013. There is persistent moderate multifactorial spinal stenosis at L3-4 and L4-5. A left-sided synovial cyst at L4-5 on the prior examination is no longer seen, although there is a possible new extraforaminal disc extrusion which could contribute to left L4 nerve root encroachment. 3. Stable chronic spondylosis at L2-3 contributing to mild spinal stenosis and mild right foraminal narrowing. 4. New discal hyperintensity at L1-2, asymmetric to the right, likely degenerative. Similar findings were present on the prior examination within the L3-4 disc. Again, infection should be excluded clinically (not strongly suspected based on imaging). 5. Multiple indeterminate T2 hypo intense renal lesions bilaterally, possibly hemorrhagic cysts. Electronically Signed By: Aakash Anderson M.D. On: 04/09/2016 12:59 - Assessment and Plan (1) Low back pain Acute M54.5 - LOW BACK PAIN Present on Admission: Yes acute bilateral without sciatica S M54.5 - Low back pain Plan: No significant changes from previous MRI. Would recommend medical management and pain control with plan for outpatient follow-up. She could be a candidate for future CHOLO, however given her anti-coagulation regimen, would not recommend at this time Continue pain management. Will follow.
[2016-04-09] MEDS ORDERED: OXYCODONE HCL 5 MG TABLET PO ONE (07:31)
[2016-04-09] MEDS: CHOLECALCIFEROL 1000 UNITS TAB PO SCH (08:16)
[2016-04-09] MEDS: VIT B-C COMPLEX (NEPHROVITE) TAB PO SCH (08:16)
[2016-04-09] MEDS: ROSUVASTATIN 10 MG TAB PO SCH (08:17)
[2016-04-09] MEDS: hydrALAZINE 25 MG TAB PO SCH ×4 (08:17→20:25)
[2016-04-09] MEDS: FEBUXOSTAT 40 MG TABLET PO SCH (08:17)
[2016-04-09] MEDS: TORSEMIDE 20 MG TAB PO SCH (08:17)
[2016-04-09] MEDS: SERTRALINE HCL 25 MG TAB PO SCH (08:17)
[2016-04-09] MEDS ORDERED: METOLAZONE 2.5 MG TAB PO SCH (09:00)
[2016-04-09] MEDS ORDERED: METOCLOPRAMIDE 10 MG/2 ML VIAL IV PRN (09:25)
--- NOTE | 2016-04-09 10:11 | PCM.CARD ---
- Subjective Reason for visit: Follow-up syncope Doing well cardiac-pabon. Denies have any dizziness of syncope however she choked today while eating and after that some food the vomited. She is very concerned about that. Her daughter tells me that this is something with happen in [place] as well. Vital Signs: Last Vital Signs Temp 98.4 F 04/09/16 07:30 Pulse 60 04/09/16 09:47 Resp 18 04/09/16 07:30 BP 135/62 04/09/16 07:30 Pulse Ox 93 04/09/16 07:30 PE: General Appearance: Well developed. Well nourished. In no acute distress. Lungs: Chest was not overinflated. Clear to auscultation. Cardiovascular: Jugular Venous Distention: JVD not increased. Heart Rate And Rhythm: Normal. Heart Sounds: Normal. Murmurs: Systolic murmur like always were heard. Carotid Arteries: Carotid pulses were normal. No bruit in the carotid artery. Edema: Not present. Lower extremities pulses normal (including femoral popliteal and dorsalis pedis) . Musculoskeletal System: General/bilateral: No cyanosis of the fingers. Neurological: Oriented to time, place, and person. Nails: No clubbing of the fingernails. Lab/DI Results Reviewed: Laboratory Results - last 24 hr 04/08/16 04/08/16 04/08/16 10:39 16:56 20:05 PT INR POC Capillary Glucose 113 H 112 H 159 H 04/09/16 04/09/16 04:30 05:41 PT 21.5 H INR 2.1 POC Capillary Glucose 88 - Assessment/Plan (1) Bradycardia Chronic R00.1 - BRADYCARDIA, UNSPECIFIED Present on Admission: Yes Comment/Plan: Beta-natalia and amiodarone withdrawn. Rhythm appears to be normal sinus with no significant bradycardia. Will continue monitoring. (2) Syncope Acute R55 - SYNCOPE AND COLLAPSE Present on Admission: Yes unspecified E R55 - Syncope and collapse Comment/Plan: Denies having any new episodes. (3) Aortic stenosis Chronic I35.0 - NONRHEUMATIC AORTIC (VALVE) STENOSIS Present on Admission: Yes nonrheumatic I35.0 - Nonrheumatic aortic (valve) stenosis Comment/Plan: Not critical. (4) Atrial fibrillation Chronic I48.91 - UNSPECIFIED ATRIAL FIBRILLATION paroxysmal I48.0 - Paroxysmal atrial fibrillation Comment/Plan: Maintain sinus rhythm. Anticoagulated which I will continue. (5) Type 2 diabetes mellitus with diabetic nephropathy Acute E11.21 - TYPE 2 DIABETES MELLITUS WITH DIABETIC NEPHROPATHY Present on Admission: Yes D Comment/Plan: Follow up by Internal Medicine team. (6) DM2 (diabetes mellitus, type 2) Chronic E11.9 - TYPE 2 DIABETES MELLITUS WITHOUT COMPLICATIONS D D D P D D L C
--- NOTE | 2016-04-09 13:01 | DIRPT ---
CLINICAL DATA: Generalized low back pain since falling 2 weeks ago. No leg pain or previous relevant surgery. EXAM: MRI LUMBAR SPINE WITHOUT CONTRAST TECHNIQUE: Multiplanar, multisequence MR imaging of the lumbar spine was performed. No intravenous contrast was administered. COMPARISON: Lumbar spine radiographs 04/07/2016, lumbar MRI a 03/27/[address] 03/12/2012. FINDINGS: Segmentation: Conventional anatomy assumed, with the last open disc space designated L5-S1. Alignment: The alignment is similar to the prior examination with a convex left scoliosis and grade 1 anterolisthesis at L4-5 and L5-S1. Bones: The previously demonstrated T2 hyperintensity within the L3-4 disc space has improved. There is new hyperintensity within the L1-2 disc space which is asymmetric to the right. There is some paraspinal edema on the right at this level, but no focal fluid collection or endplate destruction. There are endplate degenerative changes throughout the lumbar spine which are mildly progressive. Conus medullaris: Extends to the L1-2 level and appears normal. Paraspinal and other soft tissues: As above, mild paraspinal edema on the right at L1-2. Best seen on the coronal images are multiple renal lesions bilaterally demonstrating low T2 signal. The largest of these measures 2.3 cm in the interpolar region of the left kidney (coronal image number 11). On the prior noncontrast CT, there was a small hyperdense lesion in this area. There is a large simple appearing cyst in the lower pole of the left kidney, measuring up to 4.6 cm. Disc levels: L1-2: Progressive disc degeneration with asymmetric disc bulging, paraspinal osteophytes and discal T2 hyperintensity on the right as noted above. There is mild facet and ligamentous hypertrophy and mild right foraminal narrowing. No nerve root encroachment. L2-3: Chronic spondylosis with loss of disc height, annular disc bulging and endplate osteophytes asymmetric to the right. Mild facet and ligamentous hypertrophy. There is stable mild spinal stenosis and mild right foraminal narrowing. L3-4: Chronic loss of disc height with annular disc bulging and paraspinal osteophytes. There is moderate facet and ligamentous hypertrophy. These factors contribute to moderate spinal stenosis which is similar to the prior examination. There is asymmetric narrowing of the left lateral recess and mild foraminal narrowing bilaterally. L4-5: Stable mild loss of disc height with annular disc bulging. There is moderate facet and ligamentous hypertrophy contributing to mild to moderate foraminal narrowing bilaterally. The previously demonstrated synovial cyst extending medially from the left facet joint is no longer seen. There is persistent moderate multifactorial spinal stenosis with asymmetric narrowing of the left lateral recess. In addition, there is suspicion of a focal extraforaminal disc extrusion on the left, best seen on axial image 22 of series 4. This may contribute to extraforaminal left L4 nerve root encroachment. L5-S1: Disc height is relatively maintained. There is stable asymmetric facet hypertrophy on the left and mild disc bulging. No significant spinal stenosis or nerve root encroachment. IMPRESSION: 1. No definite acute posttraumatic findings related to recent fall. 2. Multilevel lumbar spondylosis, mildly progressive from prior MRI of 2012. There is persistent moderate multifactorial spinal stenosis at L3-4 and L4-5. A left-sided synovial cyst at L4-5 on the prior examination is no longer seen, although there is a possible new extraforaminal disc extrusion which could contribute to left L4 nerve root encroachment. 3. Stable chronic spondylosis at L2-3 contributing to mild spinal stenosis and mild right foraminal narrowing. 4. New discal hyperintensity at L1-2, asymmetric to the right, likely degenerative. Similar findings were present on the prior examination within the L3-4 disc. Again, infection should be excluded clinically (not strongly suspected based on imaging). 5. Multiple indeterminate T2 hypo intense renal lesions bilaterally, possibly hemorrhagic cysts. Electronically Signed By: Aakash Anderson M.D. On: 04/09/2016 12:59
[2016-04-09] MEDS: WARFARIN 2 MG TAB PO SCH (17:04)
[2016-04-09] MEDS: This patient is receiving warfarin therapy SCH (17:05)
[2016-04-09] MEDS: GLARGINE INSULIN (LANTUS) 100 UNITS/ML PEN SQ SCH (20:27)
--- NOTE | 2016-04-09 23:03 | GENMEDPROG ---
Chief Complaint: Complains of a piece food getting caught in her throat which cleared with apple sauce and fluid Notes Reviewed: Yes Events from last night noted and discussed with Clinical Staff Current Medication List: Reviewed DVT Prophylaxis: Yes - Physical Examination Vital Signs and I&O: Last Vital Signs Temp 98.1 F 04/09/16 20:00 Pulse 58 L 04/09/16 20:00 Resp 18 04/09/16 20:00 BP 154/69 04/09/16 20:00 Pulse Ox 97 04/09/16 20:00 Oxygen Pulse Oxygen Saturation 97 O2 Device Nasal Cannula Oxygen Flow Rate 1 Fraction of Inspired Oxygen ( 1 FIO2) Intake & Output 04/06/16 04/07/16 04/08/16 04/09/16 23:59 23:59 23:59 23:59 Intake Total 700 360 360 945 Output Total 4620 1300 1950 1060 Balance -3920 -940 -1590 -115 Patient's weight 82.554 kg 83.053 kg 82.327 kg 81.647 kg General: Alert, Oriented x3, Cooperative, No acute distress, Well appearing HEENT: Normal (Normocephalic, atraumatic;EOMI.Sclera white, Nares patent, without discharge or bleeding. No oropharyngeal lesions or erythema. Mucous membranes are dry.) Neck: Non-tender, Normal Trachea alignment, Normal inspection (No cervical lymphadenopathy. No supraclavicular lymphadenopathy.), No Masses palpable, Limited range of motion Lymphatics: Normal. negative: Adenopathy Respiratory: Normal - CTA (Clear to auscultation bilaterally. No wheezing, rales , rhonchi. Chest wall movements are symmetric. No use of accessory muscles to breathe.) Cardiovascular: Regular rate and rhythm (No bradycardia or tachycardia), Normal S1, No Gallops,Rubs/Murmurs, Normal S2 GI: Normal bowel sounds (normal active sounds), Soft (non-distended), Non tender , No hepatospenomegaly, No masses Extremities/Musculoskeletal: negative: Tenderness, Clubbing, Cyanosis Skin: Warm,Dry and Intact, No rashes, No significant lesion Neurological: Strength at 5/5 X4 ext (Motor 5/5 throughout.), Normal tone, Cranial nerves 3-12 NL ( 2-12 grossly intact.) Psych/Mental Status: Appropriate, Normal Affect Lab/DI/Studies Reviewed: 04/08/16 05:00 04/08/16 05:00 Laboratory Results - last 24 hr 04/09/16 04/09/16 04/09/16 04:30 05:41 11:04 PT 21.5 H INR 2.1 POC Capillary Glucose 88 109 H 04/09/16 04/09/16 16:30 20:27 PT INR POC Capillary Glucose 162 H 203 H - Assessment (1) Bradycardia Chronic R00.1 - BRADYCARDIA, UNSPECIFIED Comment/Plan: Telemetry. Discontinued beta-natalia. Heart rate gradually improving. (2) Syncope Acute R55 - SYNCOPE AND COLLAPSE Qualifiers: Syncope type: unspecified Encounter type: E Qualified Code(s): R55 - Syncope and collapse Comment/Plan: Bradycardia associated with syncope. Adjustments have been made in her medications. Appreciate Cardiology input (3) Aortic stenosis Chronic I35.0 - NONRHEUMATIC AORTIC (VALVE) STENOSIS Qualifiers: Cardiac valve disease etiology: nonrheumatic Qualified Code(s): I35.0 - Nonrheumatic aortic (valve) stenosis Comment/Plan: Last echocardiogram I have access to showed mild aortic stenosis with a valve area of 1.7 centimeters squared and mitral regurgitation which was moderate. Patient states her last echo was done in January 2016. Will obtain a copy of this. (4) Atrial fibrillation Chronic I48.91 - UNSPECIFIED ATRIAL FIBRILLATION Qualifiers: Atrial fibrillation type: paroxysmal Qualified Code(s): I48.0 - Paroxysmal atrial fibrillation Comment/Plan: Patient taking Coumadin for this and INR is therapeutic. (5) Low back pain Acute M54.5 - LOW BACK PAIN Qualifiers: Chronicity: acute Back pain laterality: bilateral Sciatica presence: without sciatica Sciatica laterality: S Qualified Code(s): M54.5 - Low back pain Comment/Plan: Patient is rendered nonambulatory with her low back pain it has been evaluated by physical therapy as well as Orthopedics to attempt improvement in so far is barely able to sit on the edge of the bed but over a period time should improve. 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 (7) Congestive heart failure Chronic I50.9 - HEART FAILURE, UNSPECIFIED Qualifiers: Congestive heart failure type: diastolic Congestive heart failure chronicity: chronic Qualified Code(s): I50.32 - Chronic diastolic (congestive ) heart failure Comment/Plan: Continue medical therapy. Patient seems compensated. The Lasix changed to p.o. Demodex and Zaroxolyn. Monitor weight. Continues salt restriction. Disposition Plan: [facility] placement appears to be necessary Case Care Discussed with: Patient, Nursing Staff, Resource Management Education/Counseling Given To: Patient Education/Counseling Given Regarding: Diagnosis Total Time: 39 min Critical Care: No Code: 64324 (12+)
[2016-04-10] MEDS: ISOSORBIDE MONONITRATE 60 MG TAB PO SCH (05:11)
[2016-04-10 06:00] LABS: AUTOMATED BASOPHIL 0.5 % (0-2); AUTOMATED EOSINOPHIL 2.7 % (0-5); AUTOMATED LYMPH 3.8 % (17-44); AUTOMATED MONOCYTE 9.4 % (3-10); AUTOMATED NEUTROPHIL 83.6 % (45-76); MPV 9.3 fL (7.4-10.4)
[2016-04-10 06:08] LABS: PT-INR 2.3
[2016-04-10 06:17] LABS: BLOOD UREA NITROGEN 99 MG/DL (7-17); CALC CORRECTED 9.9 MG/DL (8.4-10.2); CALCIUM 8.5 MG/DL (8.4-10.2); CALCULATED OSMOLALITY 300 MOs/Kg (270-290); CHLORIDE 104 mEq/L (98-107); GLUCOSE 66 MG/DL (70-99); SODIUM LEVEL 141 mEq/L (137-146)
[2016-04-10] MEDS: REGULAR INSULIN 100 UNITS/ML - 3 ML VIAL SQ SCH ×4 (06:43→20:02)
--- NOTE | 2016-04-10 06:46 | PCM.ORTHBL ---
- Subjective Daily Assessment - Patient: Reports: No new complaints, Awake Alert Oriented x4 , Still having pain (in lower back without radicular pain), Tolerating Regular Diet, Afebrile, Other (Denies chest pain). Denies: Shortness of breath, Nausea , Vomiting - Objective / Physical Exam Vital Signs: Temperature: 98.1 F (04/10/16 04:00) HR: 56 (04/10/16 04:00)RR: 18 (04/10/16 04: 00) BP: 131/61 (04/10/16 04:00)Pulse Ox: 99 (04/10/16 04:00) General: Alert, Oriented x3, Cooperative, No acute distress, Well appearing Musculoskeletal / Extremities: 2 plus Dorsalis Pedis Pulse Neurological: Positive Sensation First Dorsal Web Space, Sensation to light touch intact, Extensor Hallicus Longus Intact, Flexor Hallicus Longus Intact, Dorsiflexion Intact, Plantarflexion Intact Spine: limited range of motion Laboratory/Diagnostics Reviewed: 04/10/16 05:40 04/10/16 05:40 - Assessment and Plan (1) Low back pain Acute M54.5 - LOW BACK PAIN Present on Admission: Yes acute bilateral without sciatica S M54.5 - Low back pain Plan: No new concerning findings on MRI yesterday. Symptoms are likely an exacerbation of pre-existing problems. continue medical management and pain management. She is not currently a candidate for CHOLO given her medical condition/anti-coagulation therapy. We can follow-up with the patient as an outpatient or earlier with any new/worsening symptoms.
[2016-04-10] MEDS: OXYCODONE HCL 5 MG TABLET PO PRN ×2 (08:04→20:25)
[2016-04-10] MEDS: FEBUXOSTAT 40 MG TABLET PO SCH (08:05)
[2016-04-10] MEDS: ROSUVASTATIN 10 MG TAB PO SCH (08:05)
[2016-04-10] MEDS: SERTRALINE HCL 25 MG TAB PO SCH (08:05)
[2016-04-10] MEDS: VIT B-C COMPLEX (NEPHROVITE) TAB PO SCH (08:05)
[2016-04-10] MEDS: TORSEMIDE 20 MG TAB PO SCH (08:05)
[2016-04-10] MEDS: hydrALAZINE 25 MG TAB PO SCH ×4 (08:05→20:24)
[2016-04-10] MEDS: CHOLECALCIFEROL 1000 UNITS TAB PO SCH (08:05)
--- NOTE | 2016-04-10 08:12 | GENMEDPROG ---
Chief Complaint: Lower back pain being medicated but refuses to ambulate. However when Jacome was removed patient did get up on the potty chair. She and her daughter agree to allow her to go to a jail. I just found out she has a bed offer at [facility] but not sure what her preference is. Physical therapy has been working with her getting her to the edge of the bed and attempting to get her to stand. As the pain improved she should be able to ambulate. Notes Reviewed: Yes Events from last night noted and discussed with Clinical Staff Current Medication List: Reviewed DVT Prophylaxis: Yes - Physical Examination Vital Signs and I&O: Last Vital Signs Temp 98.4 F 04/10/16 07:43 Pulse 55 L 04/10/16 07:49 Resp 18 04/10/16 07:43 BP 130/61 04/10/16 07:43 Pulse Ox 94 04/10/16 07:43 Oxygen Pulse Oxygen Saturation 94 O2 Device Nasal Cannula Oxygen Flow Rate 1 Fraction of Inspired Oxygen ( 1 FIO2) Intake & Output 04/07/16 04/08/16 04/09/16 04/10/16 23:59 23:59 23:59 23:59 Intake Total 360 360 945 Output Total 1300 1950 1060 825 Balance -940 -1590 -115 -825 Patient's weight 83.053 kg 82.327 kg 81.647 kg 82.667 kg General: Alert, Oriented x3, Cooperative, No acute distress, Well appearing HEENT: Normal (Normocephalic, atraumatic;EOMI.Sclera white, Nares patent, without discharge or bleeding. No oropharyngeal lesions or erythema. Mucous membranes are dry.) Neck: Non-tender, Normal Trachea alignment, Normal inspection (No cervical lymphadenopathy. No supraclavicular lymphadenopathy.), No Masses palpable, Limited range of motion Lymphatics: Normal (No lymph node swelling or pain.) Respiratory: Normal - CTA (Clear to auscultation bilaterally. No wheezing, rales , rhonchi. Chest wall movements are symmetric. No use of accessory muscles to breathe.) Cardiovascular: Regular rate and rhythm (No bradycardia or tachycardia occasionally irregular with PACs on monitor), Normal S1, No Gallops,Rubs/Murmurs , Normal S2, Good Pedal Pulses (DP pulses 2+ bilaterally) GI: Normal bowel sounds (normal active sounds), Soft (non-distended), Non tender , No hepatospenomegaly, No masses Extremities/Musculoskeletal: Normal pulses (DP pulses 2+ bilaterally) Skin: Warm,Dry and Intact, No rashes, No significant lesion Neurological: Strength at 5/5 X4 ext (Motor 5/5 throughout.), Normal tone, Cranial nerves 3-12 NL ( 2-12 grossly intact.) Psych/Mental Status: Appropriate, Normal Affect Lab/DI/Studies Reviewed: 04/10/16 05:40 04/10/16 05:40 Laboratory Results - last 24 hr 04/09/16 04/09/16 04/09/16 11:04 16:30 20:27 WBC RBC Hgb Hct MCV MCH MCHC RDW Plt Count MPV Neut % (Auto) Lymph % (Auto) [place] % (Auto) Eos % (Auto) Baso % (Auto) Absolute Neuts (auto) Absolute Lymphs (auto) PT INR Sodium Potassium Chloride Carbon Dioxide Anion Gap BUN Creatinine Estimated GFR (MDRD) Glucose POC Capillary Glucose 109 H 162 H 203 H Calculated Osmolality Calcium Corrected Calcium Total Bilirubin AST ALT Alkaline Phosphatase Total Protein Albumin 04/10/16 04/10/16 04/10/16 05:35 05:40 05:40 WBC RBC Hgb Hct MCV MCH MCHC RDW Plt Count MPV Neut % (Auto) Lymph % (Auto) [place] % (Auto) Eos % (Auto) Baso % (Auto) Absolute Neuts (auto) Absolute Lymphs (auto) PT 24.2 H INR 2.3 Sodium 141 Potassium 4.2 Chloride 104 Carbon Dioxide 26 Anion Gap 15 BUN 99 H Creatinine 4.40 H Estimated GFR (MDRD) 9 L Glucose 66 L POC Capillary Glucose 76 Calculated Osmolality 300 H Calcium 8.5 Corrected Calcium 9.9 Total Bilirubin 0.4 AST 27 ALT 37 Alkaline Phosphatase 49 L Total Protein 5.0 L Albumin 2.6 L 04/10/16 05:40 WBC 6.7 RBC 3.40 L Hgb 10.4 L Hct 31.3 L MCV 92 MCH 30.5 MCHC 33.1 RDW 17.2 H Plt Count 133 MPV 9.3 Neut % (Auto) 83.6 H Lymph % (Auto) 3.8 L [place] % (Auto) 9.4 Eos % (Auto) 2.7 Baso % (Auto) 0.5 Absolute Neuts (auto) 5.56 Absolute Lymphs (auto) 0.20 L PT INR Sodium Potassium Chloride Carbon Dioxide Anion Gap BUN Creatinine Estimated GFR (MDRD) Glucose POC Capillary Glucose Calculated Osmolality Calcium Corrected Calcium Total Bilirubin AST ALT Alkaline Phosphatase Total Protein Albumin - Assessment (1) Bradycardia Chronic R00.1 - BRADYCARDIA, UNSPECIFIED Comment/Plan: Telemetry. Discontinued beta-natalia. Heart rate gradually improving. (2) Syncope Acute R55 - SYNCOPE AND COLLAPSE Qualifiers: Syncope type: unspecified Encounter type: E Qualified Code(s): R55 - Syncope and collapse Comment/Plan: Bradycardia associated with syncope. Adjustments have been made in her medications. Appreciate Cardiology input (3) Aortic stenosis Chronic I35.0 - NONRHEUMATIC AORTIC (VALVE) STENOSIS Qualifiers: Cardiac valve disease etiology: nonrheumatic Qualified Code(s): I35.0 - Nonrheumatic aortic (valve) stenosis Comment/Plan: Last echocardiogram I have access to showed mild aortic stenosis with a valve area of 1.7 centimeters squared and mitral regurgitation which was moderate. Patient states her last echo was done in January 2016. Will obtain a copy of this. (4) Atrial fibrillation Chronic I48.91 - UNSPECIFIED ATRIAL FIBRILLATION Qualifiers: Atrial fibrillation type: paroxysmal Qualified Code(s): I48.0 - Paroxysmal atrial fibrillation Comment/Plan: Patient taking Coumadin for this and INR is therapeutic. (5) Low back pain Acute M54.5 - LOW BACK PAIN Qualifiers: Chronicity: acute Back pain laterality: bilateral Sciatica presence: without sciatica Sciatica laterality: S Qualified Code(s): M54.5 - Low back pain Comment/Plan: Patient is rendered nonambulatory with her low back pain it has been evaluated by physical therapy as well as Orthopedics to attempt improvement in so far is barely able to sit on the edge of the bed but over a period time should improve. 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 (7) Congestive heart failure Chronic I50.9 - HEART FAILURE, UNSPECIFIED Qualifiers: Congestive heart failure type: diastolic Congestive heart failure chronicity: chronic Qualified Code(s): I50.32 - Chronic diastolic (congestive ) heart failure Comment/Plan: Continue medical therapy. Patient seems compensated. The Lasix changed to p.o. Demodex and Zaroxolyn. Monitor weight. Continues salt restriction. Disposition Plan: [facility] placement appears to be necessary and do have a bed offer made this afternoon according to systems requirements planner so can discharge in a.m.. Case Care Discussed with: Patient, Nursing Staff, Resource Management Education/Counseling Given To: Patient, Family Member Education/Counseling Given Regarding: Diagnosis Total Time: 39 min Critical Care: No Code: 93299 (12+)
--- NOTE | 2016-04-10 08:53 | PCM.CARD ---
- Subjective Reason for visit: Follow-up bradycardia Doing fine respiratory pabon. Complained of having back pain. Vital Signs: Last Vital Signs Temp 98.4 F 04/10/16 07:43 Pulse 55 L 04/10/16 07:49 Resp 18 04/10/16 07:43 BP 130/61 04/10/16 07:43 Pulse Ox 94 04/10/16 07:43 PE: General Appearance: Well developed. Well nourished. In no acute distress. Lungs: Chest was not overinflated. Clear to auscultation. Cardiovascular: Jugular Venous Distention: JVD not increased. Heart Rate And Rhythm: Normal. Heart Sounds: Normal. Murmurs: No murmurs were heard. Carotid Arteries: Carotid pulses were normal. No bruit in the carotid artery. Edema: Not present. Lower extremities pulses normal (including femoral popliteal and dorsalis pedis) . Musculoskeletal System: General/bilateral: No cyanosis of the fingers. Neurological: Oriented to time, place, and person. Nails: No clubbing of the fingernails. Lab/DI Results Reviewed: Laboratory Results - last 24 hr 04/09/16 04/09/16 04/09/16 11:04 16:30 20:27 WBC RBC Hgb Hct MCV MCH MCHC RDW Plt Count MPV Neut % (Auto) Lymph % (Auto) [place] % (Auto) Eos % (Auto) Baso % (Auto) Absolute Neuts (auto) Absolute Lymphs (auto) PT INR Sodium Potassium Chloride Carbon Dioxide Anion Gap BUN Creatinine Estimated GFR (MDRD) Glucose POC Capillary Glucose 109 H 162 H 203 H Calculated Osmolality Calcium Corrected Calcium Total Bilirubin AST ALT Alkaline Phosphatase Total Protein Albumin 04/10/16 04/10/16 04/10/16 05:35 05:40 05:40 WBC RBC Hgb Hct MCV MCH MCHC RDW Plt Count MPV Neut % (Auto) Lymph % (Auto) [place] % (Auto) Eos % (Auto) Baso % (Auto) Absolute Neuts (auto) Absolute Lymphs (auto) PT 24.2 H INR 2.3 Sodium 141 Potassium 4.2 Chloride 104 Carbon Dioxide 26 Anion Gap 15 BUN 99 H Creatinine 4.40 H Estimated GFR (MDRD) 9 L Glucose 66 L POC Capillary Glucose 76 Calculated Osmolality 300 H Calcium 8.5 Corrected Calcium 9.9 Total Bilirubin 0.4 AST 27 ALT 37 Alkaline Phosphatase 49 L Total Protein 5.0 L Albumin 2.6 L 04/10/16 05:40 WBC 6.7 RBC 3.40 L Hgb 10.4 L Hct 31.3 L MCV 92 MCH 30.5 MCHC 33.1 RDW 17.2 H Plt Count 133 MPV 9.3 Neut % (Auto) 83.6 H Lymph % (Auto) 3.8 L [place] % (Auto) 9.4 Eos % (Auto) 2.7 Baso % (Auto) 0.5 Absolute Neuts (auto) 5.56 Absolute Lymphs (auto) 0.20 L PT INR Sodium Potassium Chloride Carbon Dioxide Anion Gap BUN Creatinine Estimated GFR (MDRD) Glucose POC Capillary Glucose Calculated Osmolality Calcium Corrected Calcium Total Bilirubin AST ALT Alkaline Phosphatase Total Protein Albumin Echocardiogram done in the office in February was reviewed. Ejection fraction was 30-35%. There is moderate aortic stenosis with calculated aortic valve area 1.1 cm2. - Assessment/Plan (1) Bradycardia Chronic R00.1 - BRADYCARDIA, UNSPECIFIED Present on Admission: Yes Comment/Plan: I review alarms today and no significant bradycardia. Will continue present management. (2) Syncope Acute R55 - SYNCOPE AND COLLAPSE Present on Admission: Yes R55 - Syncope and collapse Comment/Plan: Most likely related to amiodarone and beta-natalia. There is also some suspicion for tachy-ej syndrome but so far we have no evidence of that. Will continue monitoring. (3) Aortic stenosis Chronic I35.0 - NONRHEUMATIC AORTIC (VALVE) STENOSIS Present on Admission: Yes I35.0 - Nonrheumatic aortic (valve) stenosis Comment/Plan: Echocardiogram from February reviewed. He had showed aortic valve area of 1.1 centimeters sq with peak gradient of 22 mean of 13.2 mm of mercury. It is not critical not enough to justify her syncope. Will continue conservative approach. (4) Atrial fibrillation Chronic I48.91 - UNSPECIFIED ATRIAL FIBRILLATION I48.0 - Paroxysmal atrial fibrillation Comment/Plan: No recurrences so far. Will continue anticoagulation because of chads score being 3. 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 (6) DM2 (diabetes mellitus, type 2) Chronic E11.9 - TYPE 2 DIABETES MELLITUS WITHOUT COMPLICATIONS
[2016-04-10] MEDS ORDERED: Fluconazole 200 mg in NS 200 MG/100 ML ML IV ONE (09:00)
[2016-04-10] MEDS ORDERED: MICONAZOLE PV SCH ×2 (09:00→21:00)
[2016-04-10] MEDS: This patient is receiving warfarin therapy SCH (15:43)
[2016-04-10] MEDS: WARFARIN 2 MG TAB PO SCH (16:57)
[2016-04-10] MEDS: GLARGINE INSULIN (LANTUS) 100 UNITS/ML PEN SQ SCH (20:24)
[2016-04-11 04:14] VITALS: BMI 31.2
[2016-04-11 06:05] LABS: AUTOMATED BASOPHIL 0.6 % (0-2); AUTOMATED EOSINOPHIL 2.3 % (0-5); AUTOMATED LYMPH 4.5 % (17-44); AUTOMATED MONOCYTE 8.6 % (3-10); MPV 9.5 fL (7.4-10.4)
[2016-04-11] MEDS: REGULAR INSULIN 100 UNITS/ML - 3 ML VIAL SQ SCH ×3 (06:21→11:48)
[2016-04-11] MEDS: ISOSORBIDE MONONITRATE 60 MG TAB PO SCH (06:21)
[2016-04-11 07:24] VITALS: TEMP 98.3
[2016-04-11] MEDS: ROSUVASTATIN 10 MG TAB PO SCH (08:04)
[2016-04-11] MEDS: CHOLECALCIFEROL 1000 UNITS TAB PO SCH (08:04)
[2016-04-11] MEDS: TORSEMIDE 20 MG TAB PO SCH (08:05)
[2016-04-11] MEDS: FEBUXOSTAT 40 MG TABLET PO SCH (08:05)
[2016-04-11] MEDS: hydrALAZINE 25 MG TAB PO SCH ×2 (08:05→11:47)
[2016-04-11] MEDS: SERTRALINE HCL 25 MG TAB PO SCH (08:05)
[2016-04-11] MEDS: VIT B-C COMPLEX (NEPHROVITE) TAB PO SCH (08:06)
[2016-04-11 10:19] VITALS: TEMP 98.3
--- NOTE | 2016-04-11 10:23 | PCM.CARD ---
- Subjective Reason for visit: Follow-up syncope Doing well. Denies have any chest pain tightness squeezing pressure burning in the chest Vital Signs: Last Vital Signs Temp 98.3 F 04/11/16 07:23 Pulse 52 L 04/11/16 07:47 Resp 18 04/11/16 07:23 BP 144/68 04/11/16 07:23 Pulse Ox 98 04/11/16 08:00 PE: General Appearance: Well developed. Well nourished. In no acute distress. Lungs: Chest was not overinflated. Clear to auscultation. Cardiovascular: Jugular Venous Distention: JVD not increased. Heart Rate And Rhythm: Normal. Heart Sounds: Normal. Murmurs: Systolic murmur like always. Carotid Arteries: Carotid pulses were normal. No bruit in the carotid artery. Edema: Not present. Lower extremities pulses normal (including femoral popliteal and dorsalis pedis) . Musculoskeletal System: General/bilateral: No cyanosis of the fingers. Neurological: Oriented to time, place, and person. Nails: No clubbing of the fingernails. Lab/DI Results Reviewed: Laboratory Results - last 24 hr 04/10/16 04/10/16 04/10/16 11:20 16:56 19:58 WBC RBC Hgb Hct MCV MCH MCHC RDW Plt Count MPV Neut % (Auto) Lymph % (Auto) [place] % (Auto) Eos % (Auto) Baso % (Auto) Absolute Neuts (auto) Absolute Lymphs (auto) POC Capillary Glucose 111 H 118 H 149 H 04/11/16 04/11/16 04:55 05:15 WBC 7.7 RBC 3.38 L Hgb 10.4 L Hct 30.8 L MCV 91 MCH 30.7 MCHC 33.7 RDW 17.6 H Plt Count 147 MPV 9.5 Neut % (Auto) 84.0 H Lymph % (Auto) 4.5 L [place] % (Auto) 8.6 Eos % (Auto) 2.3 Baso % (Auto) 0.6 Absolute Neuts (auto) 6.47 Absolute Lymphs (auto) 0.31 L POC Capillary Glucose 107 H - Assessment/Plan (1) Bradycardia Chronic R00.1 - BRADYCARDIA, UNSPECIFIED Present on Admission: Yes Comment/Plan: Alarms reviewed. There is no more bradycardia. Will continue present management. (2) Syncope Acute R55 - SYNCOPE AND COLLAPSE Present on Admission: Yes unspecified E R55 - Syncope and collapse Comment/Plan: Doing fine from that point of view. (3) Aortic stenosis Chronic I35.0 - NONRHEUMATIC AORTIC (VALVE) STENOSIS Present on Admission: Yes nonrheumatic I35.0 - Nonrheumatic aortic (valve) stenosis Comment/Plan: Not critical, continue monitoring. (4) Atrial fibrillation Chronic I48.91 - UNSPECIFIED ATRIAL FIBRILLATION paroxysmal I48.0 - Paroxysmal atrial fibrillation Comment/Plan: No recurrences of dysrhythmia. Continue present management. (5) Type 2 diabetes mellitus with diabetic nephropathy Acute E11.21 - TYPE 2 DIABETES MELLITUS WITH DIABETIC NEPHROPATHY Present on Admission: Yes D Comment/Plan: Aspirin Internal Medicine team. (6) DM2 (diabetes mellitus, type 2) Chronic E11.9 - TYPE 2 DIABETES MELLITUS WITHOUT COMPLICATIONS D D D P D D L C - Plan Overall lady seems to be doing well. Continue present management. She can be transferred to [facility]'s from my standpoint of view.
--- NOTE | 2016-04-11 10:54 | PCM.DCS92 ---
- Final/Secondary Discharge Diagnosis (1) Bradycardia Resolved R00.1 - BRADYCARDIA, UNSPECIFIED Present on Admission: Yes Comment: Telemetry. Discontinued beta-natalia. Heart rate gradually improving. (2) Syncope Resolved R55 - SYNCOPE AND COLLAPSE Present on Admission: Yes unspecified E R55 - Syncope and collapse Comment: Bradycardia associated with syncope. Adjustments have been made in her medications. Appreciate Cardiology input (3) Aortic stenosis Chronic I35.0 - NONRHEUMATIC AORTIC (VALVE) STENOSIS Present on Admission: Yes nonrheumatic I35.0 - Nonrheumatic aortic (valve) stenosis Comment: Last echocardiogram I have access to showed mild aortic stenosis with a valve area of 1.7 centimeters squared and mitral regurgitation which was moderate. Patient states her last echo was done in January 2016. Will obtain a copy of this. (4) Atrial fibrillation Chronic I48.91 - UNSPECIFIED ATRIAL FIBRILLATION Present on Admission: Yes paroxysmal I48.0 - Paroxysmal atrial fibrillation Comment: Patient taking Coumadin for this and INR is therapeutic. (5) Low back pain Acute M54.5 - LOW BACK PAIN Present on Admission: Yes acute bilateral without sciatica S M54.5 - Low back pain Comment: Patient is rendered nonambulatory with her low back pain it has been evaluated by physical therapy as well as Orthopedics to attempt improvement in so far is barely able to sit on the edge of the bed but over a period time should improve. 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 (7) Congestive heart failure Chronic I50.9 - HEART FAILURE, UNSPECIFIED Present on Admission: Yes diastolic chronic I50.32 - Chronic diastolic (congestive) heart failure Comment: Continue medical therapy. Patient seems compensated. The Lasix changed to p.o. Demodex and Zaroxolyn. Monitor weight. Continues salt restriction. Discharge Disposition: Shelter Facility ([facility]) Discharge Condition: Improved Cognitive Discharge Status: Cognitive deficits prevent decision making for safety. Fuctional Discharge Status: Bed Bound, Total Assistance Required, Fall Risk, Ambulatory Dysfunction Physician Follow up/Referrals: Gonzalo Davidson MD [Ambulatory] - Two Weeks Home Medications / New Prescriptions: New Warfarin Sodium [Coumadin] 2 mg PO DAILY@1800 #30 tablet Miconazole [Monistat 3 Vaginal Supp] 1 supp PV HS #1 box Continue Nitroglycerin [Nitrostat] 0.4 mg SL Q5MX3 PRN PRN Reason: Chest Pain Or Discomfort Cholecalciferol [Vitamin D3 (cholecalciferol)] 1,000 units PO DAILY Aspirin (Enteric Coated) [Halfprin] 81 mg PO DAILY Linagliptin [Tradjenta] 5 mg PO DAILY Insulin Glargine [Lantus Pen] 22 units SQ HS Febuxostat [Uloric] 40 mg PO QAM Rosuvastatin Calcium [Crestor] 5 mg PO HS B Complex with Vitamin C [Super B Complex with C] 1 cap PO DAILY Isosorbide Mononitrate [Imdur] 60 mg PO DAILY #30 tab Folic Acid/Vitamin B Comp W-C [Renavit Tablet] 1 tab PO DAILY Torsemide 20 mg PO DAILY HydrALAZINE (Cardiovascular) [Apresoline] 25 mg PO QID Metolazone [Zaroxolyn] 2.5 mg PO TU Calcium Carbonate [Tums] 1 tab PO TID PRN PRN Reason: Acid Reflux Sertraline HCl [Zoloft] 25 mg PO DAILY Discontinued Carvedilol [Coreg] 25 mg PO BID #60 tab Amiodarone [Cordarone, Pacerone] 200 mg PO DAILY Warfarin Sodium [Coumadin] 1 mg PO Q72H Warfarin Sodium [Coumadin] 2 mg PO Q72H Warfarin Sodium [Coumadin] 2 mg PO Q72H Discharge Home Medication List Cholecalciferol [Vitamin D3 (cholecalciferol)] 1,000 units PO DAILY 03/12/12 [ History Confirmed 04/04/16] Nitroglycerin [Nitrostat] 0.4 mg SL Q5MX3 PRN 03/12/12 [History Confirmed ] Aspirin (Enteric Coated) [Halfprin] 81 mg PO DAILY 01/31/14 [History Confirmed 04/04/16] Febuxostat [Uloric] 40 mg PO QAM 01/31/14 [History Confirmed 04/04/16] Insulin Glargine [Lantus Pen] 22 units SQ HS 01/31/14 [History Confirmed ] Linagliptin [Tradjenta] 5 mg PO DAILY 01/31/14 [History Confirmed 04/04/16] Rosuvastatin Calcium [Crestor] 5 mg PO HS 01/31/14 [History Confirmed 04/04/16] B Complex with Vitamin C [Super B Complex with C] 1 cap PO DAILY 12/09/14 [ History Confirmed 04/04/16] Isosorbide Mononitrate [Imdur] 60 mg PO DAILY #30 tab 12/12/14 [Rx Confirmed ] Calcium Carbonate [Tums] 1 tab PO TID PRN 04/04/16 [History Confirmed 04/04/16] Folic Acid/Vitamin B Comp W-C [Renavit Tablet] 1 tab PO DAILY 04/04/16 [History Confirmed 04/04/16] HydrALAZINE (Cardiovascular) [Apresoline] 25 mg PO QID 04/04/16 [History Confirmed 04/04/16] Metolazone [Zaroxolyn] 2.5 mg PO TU 04/04/16 [History Confirmed 04/04/16] Sertraline HCl [Zoloft] 25 mg PO DAILY 04/04/16 [History Confirmed 04/04/16] Torsemide 20 mg PO DAILY 04/04/16 [History Confirmed 04/04/16] Miconazole [Monistat 3 Vaginal Supp] 1 supp PV HS #1 box 04/11/16 [Rx] Warfarin Sodium [Coumadin] 2 mg PO DAILY@1800 #30 tablet 04/11/16 [Rx] New Discharge Medications (Rx) Miconazole [Monistat 3 Vaginal Supp] 1 supp PV HS #1 box 04/11/16 [Rx] Warfarin Sodium [Coumadin] 2 mg PO DAILY@1800 #30 tablet 04/11/16 [Rx] O2 Device: Room Air Diet at Discharge: Cardiac, Heart Healthy, Low Salt Activity: As Tolerated, No Heavy Lifting (nothing over 30 lbs), No Driving ( while using pain medications) Call Office For: Worsening Symptoms, Wound is Draining Pus, Fever over 101 F - DC Summary Notes HPI/Notes: She is an 86-year-old woman with severe CKD stage 5 along with heart disease including hypertensive diastolic heart failure and valvular heart disease with mild aortic stenosis and moderate mitral regurgitation on echocardiogram in 2013. Her diagnoses include atrial fibrillation and she is on amiodarone as well as a beta-natalia previously had been described as chronic but is obvious paroxysmal form. She had trying day yesterday with doctor's visit returned home she was feeling weak during the day and at home she had an abrupt syncopal episode in the bathroom. She is described as having been incontinent at the time but no seizure activity was down for a prolonged period of time estimated 10 minutes and at 1 point when the family was talking to emergency medical services she was pulseless and receive CPR. There is a notation in the notes that when the EMS arrived she was bradycardic and hypotensive and she received atropine. I spoke to the ED staff was present when she arrived yesterday they were told her heart rate was down to 37 beats per minute and I am requesting strips did see what the rhythm was. For the time being I am going to hold any rate suppressant medications, Dr. 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 We could arrange for long-term ambulatory monitor at home for 30 days. Today she has some chest pain and chest wall tenderness room where she received CPR she had no angina yesterday she is not short of breath and she has had no other episodes like this. Hospital Course Note:: Discharge summary on patient named SANJANA JEWELL admitted to [facility] on 04/05/16 by Pascual Perla MD. Date of discharge is []. Unfortunate 86-year-old female admitted to our facility with moderate aortic stenosis. She had some bradycardia and she has had some atrial fibrillation that developed into bradycardia. She was taken off her beta-natalia and amiodarone the [place] and her heart rate improved. Her aortic stenosis is measured a valve area of 1.1 centimeters squared. She does have chronic renal failure with a creatinine of 4.4 she has severe lumbosacral pain and has not been ambulating do that. She has agreed to proceed to retirement placement as her hospital stay has reached maximal benefit. Patient has reached maximal benefit of hospitalization. She is stable for discharge to skilled facility to work on ambulation. Total Time: 45 min Code: 73816 (>30min.) - Physical Exam Vital Signs: Last Vital Signs Temp 98.3 F 04/11/16 07:23 Pulse 54 L 04/11/16 10:00 Resp 18 04/11/16 07:23 BP 144/68 04/11/16 07:23 Pulse Ox 98 04/11/16 08:00 Oxygen Pulse Oxygen Saturation 98 O2 Device Nasal Cannula Oxygen Flow Rate 2 Fraction of Inspired Oxygen ( 1 FIO2) Constitutional: No apparent distress, Alert, Well appearing Oriented to: Time, Person, Place - HEENT Head: Normal Eye: Normal (pupils equal, reactive to light, and round; EOMI, Sclera white) Oropharynx: Normal (Pharynx: Moist without exudate,Gums-no swelling, No oropharyngeal lesions or erythema, Mucous membranes are dry.) Nose: No Symptoms Reported (Nares patent, without discharge or bleeding.) - Respiratory/Cardiovascular Respiratory: Normal - CTA (Clear to auscultation bilaterally. No wheezing, rales , rhonchi. Chest wall movements are symmetric. No use of accessory muscles to breathe.) Cardiovascular: Normal (RRR , Normal S1, S2. No murmurs, rubs, or gallops. PMI non-displaced. Carotids: no carotid bruits. No bradycardia or tachycardia. DP pulses 2+ bilaterally.) - GI Auscultation: Normal (NABS) Palpation: Normal (Soft,No rebound or guarding, non distended) Tenderness: Non tender - Musculoskeletal Back: Normal (Non-Tender) Extremities: Pedal Pulse, Other (Plantarflexion and dorsiflexion intact. SITLT. ) - Integumentary Skin: Normal (Warm dry no rashes) Lymphatics: Normal (No lymph node swelling or pain.) - Neurologic Memory Impaired: Normal Motor Function: Normal (Motor 5/5 throughout.Normal tone, Pulses 2+ No cyanosis or edema, FROM) Cranial Nerve: Normal (CN II-XII intact sensation, strength 5/5) Cerebellar: Normal Mood Description: Normal Thought: Coherent Perception: Normal - Other Exam Other Exam Findings: Laboratory Results - last 24 hr 04/10/16 04/10/16 04/10/16 11:20 16:56 19:58 WBC RBC Hgb Hct MCV MCH MCHC RDW Plt Count MPV Neut % (Auto) Lymph % (Auto) Fleming % (Auto) Eos % (Auto) Baso % (Auto) Absolute Neuts (auto) Absolute Lymphs (auto) POC Capillary Glucose 111 H 118 H 149 H 04/11/16 04/11/16 04:55 05:15 WBC 7.7 RBC 3.38 L Hgb 10.4 L Hct 30.8 L MCV 91 MCH 30.7 MCHC 33.7 RDW 17.6 H Plt Count 147 MPV 9.5 Neut % (Auto) 84.0 H Lymph % (Auto) 4.5 L Fleming % (Auto) 8.6 Eos % (Auto) 2.3 Baso % (Auto) 0.6 Absolute Neuts (auto) 6.47 Absolute Lymphs (auto) 0.31 L POC Capillary Glucose 107 H EXAM: MRI LUMBAR SPINE WITHOUT CONTRAST TECHNIQUE: Multiplanar, multisequence MR imaging of the lumbar spine was performed. No intravenous contrast was administered. COMPARISON: Lumbar spine radiographs 04/07/2016, lumbar MRI a 03/27/[address] 03/12/2012. FINDINGS: Segmentation: Conventional anatomy assumed, with the last open disc space designated L5-S1. Alignment: The alignment is similar to the prior examination with a convex left scoliosis and grade 1 anterolisthesis at L4-5 and L5-S1. Bones: The previously demonstrated T2 hyperintensity within the L3-4 disc space has improved. There is new hyperintensity within the L1-2 disc space which is asymmetric to the right. There is some paraspinal edema on the right at this level, but no focal fluid collection or endplate destruction. There are endplate degenerative changes throughout the lumbar spine which are mildly progressive. Conus medullaris: Extends to the L1-2 level and appears normal. Paraspinal and other soft tissues: As above, mild paraspinal edema on the right at L1-2. Best seen on the coronal images are multiple renal lesions bilaterally demonstrating low T2 signal. The largest of these measures 2.3 cm in the interpolar region of the left kidney (coronal image number 11). On the prior noncontrast CT, there was a small hyperdense lesion in this area. There is a large simple appearing cyst in the lower pole of the left kidney, measuring up to 4.6 cm. Disc levels: L1-2: Progressive disc degeneration with asymmetric disc bulging, paraspinal osteophytes and discal T2 hyperintensity on the right as noted above. There is mild facet and ligamentous hypertrophy and mild right foraminal narrowing. No nerve root encroachment. L2-3: Chronic spondylosis with loss of disc height, annular disc bulging and endplate osteophytes asymmetric to the right. Mild facet and ligamentous hypertrophy. There is stable mild spinal stenosis and mild right foraminal narrowing. L3-4: Chronic loss of disc height with annular disc bulging and paraspinal osteophytes. There is moderate facet and ligamentous hypertrophy. These factors contribute to moderate spinal stenosis which is similar to the prior examination. There is asymmetric narrowing of the left lateral recess and mild foraminal narrowing bilaterally. L4-5: Stable mild loss of disc height with annular disc bulging. There is moderate facet and ligamentous hypertrophy contributing to mild to moderate foraminal narrowing bilaterally. The previously demonstrated synovial cyst extending medially from the left facet joint is no longer seen. There is persistent moderate multifactorial spinal stenosis with asymmetric narrowing of the left lateral recess. In addition, there is suspicion of a focal extraforaminal disc extrusion on the left, best seen on axial image 22 of series 4. This may contribute to extraforaminal left L4 nerve root encroachment. L5-S1: Disc height is relatively maintained. There is stable asymmetric facet hypertrophy on the left and mild disc bulging. No significant spinal stenosis or nerve root encroachment. IMPRESSION: 1. No definite acute posttraumatic findings related to recent fall. 2. Multilevel lumbar spondylosis, mildly progressive from prior MRI of 2012. There is persistent moderate multifactorial spinal stenosis at L3-4 and L4-5. A left-sided synovial cyst at L4-5 on the prior examination is no longer seen, although there is a possible new extraforaminal disc extrusion which could contribute to left L4 nerve root encroachment. 3. Stable chronic spondylosis at L2-3 contributing to mild spinal stenosis and mild right foraminal narrowing. 4. New discal hyperintensity at L1-2, asymmetric to the right, likely degenerative. Similar findings were present on the prior examination within the L3-4 disc. Again, infection should be excluded clinically (not strongly suspected based on imaging). 5. Multiple indeterminate T2 hypo intense renal lesions bilaterally, possibly hemorrhagic cysts. Electronically Signed By: Aakash Anderson M.D. On: 04/09/2016 12:59
[2016-04-11] MEDS: This patient is receiving warfarin therapy SCH (11:47)
[2016-04-11 11:55] VITALS: BP 148/66
[2016-04-11 12:18] VITALS: PULSE 99
== END 2016-04-11 14:05 | DRG 309 ==
LOC: ED 19:07 → PCU 22:22 → OBSVTOIN 04-05 13:10
PROVIDERS: ADMIT Internal Medicine; ATTEND Hospitalist
PROC: 039B3ZZ Drainage of Right Radial Artery, Percutaneous Approach (ICD-10-PCS; principal; 2016-04-05)
DX: I49.5 Sick sinus syndrome (principal); I13.2 Hypertensive heart and chronic kidney disease with heart failure and with stage 5 chronic kidney disease, or end stage renal disease; N18.5 Chronic kidney disease, stage 5; I95.9 Hypotension, unspecified; E11.21 Type 2 diabetes mellitus with diabetic nephropathy; I50.32 Chronic diastolic (congestive) heart failure; I50.1 Left ventricular failure, unspecified; R55 Syncope and collapse; I48.0 Paroxysmal atrial fibrillation; I34.0 Nonrheumatic mitral (valve) insufficiency; I35.0 Nonrheumatic aortic (valve) stenosis; E03.9 Hypothyroidism, unspecified; E78.00 Pure hypercholesterolemia, unspecified; E11.22 Type 2 diabetes mellitus with diabetic chronic kidney disease; M47.816 Spondylosis without myelopathy or radiculopathy, lumbar region; Z79.01 Long term (current) use of anticoagulants; Z79.4 Long term (current) use of insulin; Z79.82 Long term (current) use of aspirin; Z79.899 Other long term (current) drug therapy; Z85.3 Personal history of malignant neoplasm of breast; Z82.49 Family history of ischemic heart disease and other diseases of the circulatory system
CPT/HCPCS: 36415; 36600; 51701; 51798; 70450; 71010; 72110; 72125; 72148; 80048; 80053; 81001; 82043; 82272; 82803; 82962; 83036; 84443; 84484; 85007; 85025; 85027; 85610; 85730; 87493; 93005; 96360; 96361; 96372; 97161; 97162; 99285; G0378; J1450; J2270; J3490